=== PATIENT | female | born 1970 | race Caucasian/White ===

== ENCOUNTER 2017-08-11 17:25 | Inpatient (IN) | payer OTHER ==
[2017-08-11] MEDS ORDERED: ASPIRIN 81 MG PO STA (17:27)
[2017-08-11] MEDS ORDERED: HEPARIN SODIUM,PORCINE 5,000 UNIT/ML 1 ML VIAL IV PRN (17:27)
[2017-08-11] MEDS ORDERED: MORPHINE SULFATE 4 MG/ML SYRINGE IV PRN (17:27)
[2017-08-11] MEDS ORDERED: NITROGLYCERIN SL TABS 0.4 MG TAB SUBLINGUAL PRN (17:27)
[2017-08-11] MEDS ORDERED: HEPARIN SOD,PORK IN 0.45% NACL 25,000 UNIT in 0.45% NACL 1 500ML.BAG IV SCH (17:30)
[2017-08-11] MEDS ORDERED: NITROGLYCERIN-D5W PMX 50 MG in DEXTROSE/WATER 1 250ML.BAG IV ONE (17:54)
[2017-08-11] MEDS ORDERED: LIDOCAINE 2% INJ 20 MG/ML (20 ML MDV) ONE ×2 (18:06→19:00)
--- NOTE | 2017-08-11 18:07 | P.CRDCN ---
History of Present Illness Consult date: 08/11/17 History of present illness: This is a 47-year-old female with history of smoking and also hypertension and hypercholesterolemia who was transferred from [facility] emergency room. Apparently patient has been having intermittent chest pain and tightness in the morning. EKG in the emergency room. There showed mild ST-T changes in 1 and aVL. Patient chest pain was partially relieved with nitroglycerin. Patient's troponins showed mild elevation. Patient had CT angiogram at [facility]. This is was apparently negative for pulmonary emboli. Patient subsequent was transferred here. EKG here showed a sinus rhythm with mild ST elevations in anterolateral leads with T-wave inversions. Patient is still having some chest tightness and shortness of breath. No changes are noted in the inferior leads. His felt that may be consistent with acute coronary syndrome and possible HI. She is advised to have a cardiac catheterization for definitive diagnosis. The possibility of pericarditis is also considered. Patient was explained the risks and benefits of the procedure including the possibility of myocardial infarctions, stroke or even Past Medical History Past Medical History: Hyperlipidemia, Hypertension History of Any Multi-Drug Resistant Organisms: None Reported Past Psychological History: No Psychological Hx Reported Smoking Status: Current every day smoker Past Alcohol Use History: Occasional Past Drug Use History: None Reported Medications and Allergies Allergies Allergy/AdvReac Type Severity Reaction Status Date / Time No Known Allergies Allergy Verified 08/11/17 17:40 Physical Exam Vitals: Vital Signs Temp Pulse Resp BP Pulse Ox 08/11/17 17:45 99.0 F 86 20 154/103 98 08/11/17 17:28 82 20 161/103 96 Intake and Output 08/11/17 08/11/17 08/11/17 06:59 14:59 22:59 Other: Weight 72.575 kg Patient Weight 08/12/17 06:59 Weight 72.575 kg GENERAL EXAM: Patient is alert and oriented and patient appears to be in mild-to -moderate distress HEENT: Normocephalic. Normal reaction of pupils, equal size, normal range of extraocular motion. No erythema or exudates in the throat. NECK: No masses, no nuchal rigidity. CHEST: No chest wall deformity. LUNGS: Equal air entry with no crackles or wheeze. HEART: S1 and S2 normal with no audible mumurs or gallops. Regular rhythm, femorals equal on both sides.. ABDOMEN: No hepatosplenomegaly, normal bowel sounds, no guarding or rigidity. SKIN: No rashes CENTRAL NERVOUS SYSTEM: No focal deficits. EXTREMITIES: No cyanosis, clubbing or edema. Results Current Medications Generic Name Dose Route Start Last Admin Trade Name Freq PRN Reason Stop Dose Admin Aspirin 325 mg 08/12/17 09:00 Aspirin PO DAILY [facility] Atorvastatin Calcium 80 mg 08/12/17 09:00 Lipitor PO DAILY [facility] Heparin Sodium (Porcine) 0 unit 08/11/17 17:27 Heparin IV Q6HR PRN Low PTT Protocol Heparin Sodium/Sodium Chloride 500 mls @ 17.41 mls/hr 08/11/17 17:30 17:55 25,000 unit/ Sodium Chloride IV 12 units/kg/hr .Q24H ADITI 17.41 mls/hr Protocol Administration 12 UNITS/KG/HR Nitroglycerin/Dextrose 50 mg/ 250 mls @ 1.5 mls/hr 08/11/17 17:54 08/11/17 17 :55 IV Solution IV 08/12/17 17:53 5 mcg/min .Q24H ONE 1.5 mls/hr Protocol Administration 5 MCG/MIN Metoprolol Tartrate 25 mg 08/11/17 21:00 Lopressor PO BID [facility] Morphine Sulfate 4 mg 08/11/17 17:27 Morphine Sulfate (Inj) IV Q5M PRN Chest Pain Nitroglycerin 0.4 mg 08/11/17 17:27 Nitrostat SUBLINGUAL Q5M PRN Chest Pain Intake and Output 08/11/17 08/11/17 08/11/17 06:59 14:59 22:59 Other: Weight 72.575 kg Patient Weight 08/12/17 06:59 Weight 72.575 kg EKG Interpretations (text) Sinus rhythm with a diffuse ST-T wave normalities with mild ST elevation and T- wave inversion in anterolateral leads. Could be consistent with ischemia. The possibility of pericarditis to be considered Assessment and Plan (1) Acute coronary syndrome Status: Acute Code(s): I24.9 - ACUTE ISCHEMIC HEART DISEASE, UNSPECIFIED SNOMED Code(s): 020119569 (2) Hypertension Status: Acute Code(s): I10 - ESSENTIAL (PRIMARY) HYPERTENSION SNOMED Code(s) : 93316340 (3) Hypercholesterolemia Status: Acute Code(s): E78.00 - PURE HYPERCHOLESTEROLEMIA, UNSPECIFIED SNOMED Code(s): 19492496 Plan: We'll proceed with cardiac catheterization for definitive diagnosis. Meanwhile we'll continue with the nitroglycerin, heparin and also beta melvi. Further recommendations depend upon the cardiac catheterization. Intervention is Dr. CHI Greenberg who is already informed
--- NOTE | 2017-08-11 18:13 | ED ---
General Adult HPI - General Chief complaint: Chest Pain Stated complaint: Chest Pain Time Seen by Provider: 08/11/17 17:28 Source: patient, EMS, RN notes reviewed, old records reviewed Mode of arrival: EMS Limitations: no limitations - History of Present Illness Initial comments: This is a 47-year-old female to the ER for evaluation of chest pain. Patient accepted in transfer from [facility] for evaluation by cardiology secondary non-ST elevated FL, elevated troponin and active chest pain. Patient presents ER today still complaining of active chest pain anterior chest. With increasing troponin. - Related Data Previous Rx's Medication Instructions Recorded Aspirin 81 mg PO DAILY #90 chew 08/13/17 Atorvastatin [Lipitor] 80 mg PO DAILY #30 tab 08/13/17 Furosemide [Lasix] 20 mg PO DAILY #90 tab 08/13/17 Losartan [Cozaar] 50 mg PO DAILY #90 tab 08/13/17 Metoprolol Tartrate [Lopressor] 25 mg PO BID #180 tab 08/13/17 Nitroglycerin Sl Tabs [Nitrostat] 0.4 mg SUBLINGUAL Q5M PRN #25 tab 08/13/17 Allergies Allergy/AdvReac Type Severity Reaction Status Date / Time No Known Allergies Allergy Verified 08/11/17 18:08 Review of Systems ROS Statement: Those systems with pertinent positive or pertinent negative responses have been documented in the HPI. ROS Other: All systems not noted in ROS Statement are negative. Past Medical History Past Medical History: Hyperlipidemia, Hypertension History of Any Multi-Drug Resistant Organisms: None Reported Past Psychological History: No Psychological Hx Reported Smoking Status: Current every day smoker Past Alcohol Use History: Occasional Past Drug Use History: None Reported - Past Family History Father Additional Family Medical History / Comment(s): pt's father due to alcoholism General Exam Limitations: no limitations General appearance: alert, in no apparent distress, anxious Head exam: Present: atraumatic, normocephalic, normal inspection Eye exam: Present: normal appearance, PERRL, EOMI. Absent: scleral icterus, conjunctival injection, periorbital swelling ENT exam: Present: normal exam, mucous membranes moist Neck exam: Present: normal inspection. Absent: tenderness, meningismus, lymphadenopathy Respiratory exam: Present: normal lung sounds bilaterally. Absent: respiratory distress, wheezes, rales, rhonchi, stridor Cardiovascular Exam: Present: regular rate, normal rhythm, normal heart sounds. Absent: systolic murmur, diastolic murmur, rubs, gallop, clicks GI/Abdominal exam: Present: soft, normal bowel sounds. Absent: distended, tenderness, guarding, rebound, rigid Extremities exam: Present: normal inspection, full ROM, normal capillary refill. Absent: tenderness, pedal edema, joint swelling, calf tenderness Back exam: Present: normal inspection Neurological exam: Present: alert, oriented X3, CN II-XII intact Psychiatric exam: Present: normal affect, normal mood Skin exam: Present: warm, dry, intact, normal color. Absent: rash Course Vital Signs 08/11/17 08/11/17 08/11/17 17:28 17:45 18:00 Temperature 99.0 F Pulse Rate 82 86 88 Pulse Rate [ Left Pulse Oximetery] Respiratory 20 20 20 Rate Blood Pressure 161/103 154/103 152/98 Blood Pressure [Right Arm Supine] O2 Sat by Pulse 96 98 98 Oximetry 08/11/17 18:11 Temperature 98.8 F Pulse Rate Pulse Rate [ 83 Left Pulse Oximetery] Respiratory 17 Rate Blood Pressure Blood Pressure 140/94 [Right Arm Supine] O2 Sat by Pulse 96 Oximetry - Reevaluation(s) Reevaluation #1: Cardiology doctor in the ER evaluating patient, will take patient to [facility] Medical Decision Making - Medical Decision Making 47 female the ER for evaluation of non-ST elevated FL, patient be admitted For cardiac intervention - Lab Data Result diagrams: 08/13/17 05:35 08/12/17 02:42 Critical Care Time Critical Care Time: Yes Total Critical Care Time: 31 Disposition Clinical Impression: Acute coronary syndrome, Hypercholesterolemia, Hypertension, NSTEMI (non-ST elevated myocardial infarction) Disposition: ADMITTED IP TO [facility] Condition: Stable
[2017-08-11] MEDS ORDERED: fentaNYL (PF) 50 MCG/ML 2 ML AMP ONE (18:18)
[2017-08-11] MEDS ORDERED: MIDAZOLAM 2 MG/2 ML VIAL ONE (18:18)
[2017-08-11] MEDS ORDERED: LIDOCAINE 2% INJ 20 MG/ML SQ ONE (18:22)
[2017-08-11] MEDS ORDERED: fentaNYL (PF) 50 MCG/ML 2 ML AMP IV ONE (18:24)
[2017-08-11] MEDS ORDERED: MIDAZOLAM 2 MG/2 ML VIAL IV ONE (18:24)
[2017-08-11] MEDS ORDERED: METOPROLOL TARTRATE 5 MG/5 ML VIAL IVP ONE ×2 (18:24→18:25)
[2017-08-11] MEDS ORDERED: IV FLUID CONTINUATION 1,000 ML IV ONE (18:27)
[2017-08-11] MEDS ORDERED: HEPARIN SODIUM 1,000 UN/ML (10ML VL) ONE (18:35)
[2017-08-11] MEDS ORDERED: HEPARIN SODIUM 1,000 UN/ML (10ML VL) IV ONE (18:37)
[2017-08-11] MEDS ORDERED: NITROGLYCERIN 1000MCG/10ML SYRINGE INTRACORON ONE (18:46)
--- NOTE | 2017-08-11 18:49 | P.PCN ---
Date of Procedure: 08/11/17 Preoperative Diagnosis: Chest pain, acute coronary syndrome versus pericarditis Postoperative Diagnosis: Moderate to severe disease in the proximal RCA after a marginal branch Procedure(s) Performed: Left heart catheterization without left ventriculogram Description of Procedure: HISTORY: This is a 47-year-old female with history of smoking, hypertension and hypercholesteremia presented to [facility] with prolonged chest discomfort. Her EKG showed mild ST-T abnormalities. Initially the patient had a CT angiogram which was negative for pulmonary emboli. Patient was sent to [facility]. EKG showed more progressive ST-T changes with mild ST elevation and T-wave inversion in the anterolateral leads. These were consistent with acute ischemia or possible pericarditis. Her chest pains were atypical, but continued complaining of chest tightness. She is advised to have a cardiac catheterization for definite diagnosis. CONSENT:I have discussed the risks, benefits and alternative therapies for the above-mentioned procedure and for both sedation/analgesia as well as necessary blood product administration, if indicated, as they pertain to this patient. The patient has indicated understanding and acceptance of the risks and procedures discussed. [] PROCEDURE: Patient was brought to the lab in a fasting state. Patient was given some IV sedation. The right groin is infiltrated with lidocaine and right femoral artery was entered using Seldinger technique. A 6-English catheter was left in place and selective coronary arteriography was performed. Patient tolerated the procedure well. Patient is found to have moderate to severe disease involving the proximal RCA. She went on to have FFR by Dr. CHI Greenberg Conscious Sedation: Versed 2 mg Fentanyl 50 g Duration 15minutes HEMODYNAMICS: The aortic pressure is about 140/100. SELECTIVE CORONARY ARTERIOGRAPHY: LEFT MAIN: This is normal length and patent THE LEFT ANTERIOR DESCENDING CORONARY ARTERY:. This is a good caliber vessel free of any significant focal occlusive disease THE LEFT CIRCUMFLEX AND IS CORONARY ARTERY:. Moderate caliber vessel free of any significant occlusive disease THE RIGHT CORONARY ARTERY:. This is large caliber vessel with about 60-70% lesion after acute marginal branch. The rest of the vessel is free of occlusive disease LEFT VENTRICULOGRAPHY:. Not performed FINAL IMPRESSION:. Moderate to severe disease involving the proximal LAD. She is going to have FFR. Further recommendation to follow PLAN: If FFR is negative, most probably patient has pericarditis. We'll treat her with anti-inflammatory agents and get an echocardiogram in the morning PROGNOSIS: Fair
[2017-08-11] MEDS ORDERED: ADENOSINE 90 MG in SODIUM CHLORIDE 0.9% 60 ML IVP ONE (18:53)
[2017-08-11] MEDS ORDERED: IOHEXOL 350 MG/ML 125ML BOTTLE INJ ONE (18:54)
[2017-08-11] MEDS ORDERED: HYDROmorphone 2 MG/ML 1 ML SYRINGE ONE (18:59)
[2017-08-11] MEDS ORDERED: HYDROmorphone 2 MG/ML 1 ML SYRINGE IV ONE (19:02)
[2017-08-11] MEDS ORDERED: RX INFO: IV CONTRAST WAS GIVEN 1 EACH MISC MISCELLANE PRN (19:19)
[2017-08-11] MEDS ORDERED: POTASSIUM CHLORIDE ER 20 MEQ TAB.ER PO STA (19:24)
--- NOTE | 2017-08-11 20:26 | PCN ---
PROCEDURE NOTE DATE OF SERVICE: 08/11/2017. PROCEDURE: Fractional flow reserve assessment of moderate lesion in proximal right coronary artery. PERFORMED BY: Dr. Taisha Greenberg. ANESTHESIA: Moderate conscious sedation time was 33 minutes with a combination of Dilaudid and Versed. CLINICAL INFORMATION: Mrs. Catia Dye is a 47-year-old lady who presented to [facility] with chest pain, had a troponin elevation and equivocal anterior EKG changes, was transferred here expeditiously. Patient was evaluated on coronary angiography by Dr. Dias that revealed a 55% proximal RCA lesion. Left system was free of significant disease. Left ventricular end-diastolic pressure was 28 mmHg. In view of a moderate lesion in the proximal RCA, she was advised to have an FFR and I proceeded to perform the procedure in the same setting. PROCEDURE NOTE: The existing 6-Argentine introducer in the right femoral artery was used to perform the procedure. I used a ART 3.5 guide catheter to cannulate the right coronary artery. This was a 6-Argentine catheter. Patient received 5000 units of heparin intravenously. I advanced a Albers wire under fluoroscopic guidance and wire was kept distally. I performed an IFR and also as per protocol administered intravenous adenosine and performed an FFR. The IFR was 0.98 and FFR was 0.94. These values suggest that the patient does not have any significant lesion. This was explained to the patient and Dr. Dias also talked to her regarding the findings. I checked LV pressures but did not perform LV gram. The sheath was taken out and I tried to use a Perclose to secure hemostasis, but the Perclose was unsuccessful, and therefore I applied manual compression and Femstop and patient was sent to the room in a stable condition. The findings were explained to the patient by me and to her by Dr. Dias. The patient will have an echocardiogram tomorrow and the possibility of takotsubo syndrome is being considered. She will be on a beta melvi, JOY inhibitors, and will be watched very closely. MMODL / IJN: [id number] / MTDD
[2017-08-11] MEDS: LOSARTAN 50 MG TAB PO SCH (20:30)
[2017-08-11 21:06] LABS: Creatine Kinase MB 9.2 ng/mL (0.0-2.4); Troponin I 1.81 ng/mL (0.000-0.034)
[2017-08-11] MEDS: FUROSEMIDE 10 MG/ML 2 ML VIAL IV SCH (21:16)
[2017-08-11] MEDS: METOPROLOL TARTRATE 25 MG TAB PO SCH (21:16)
[2017-08-11] MEDS: SODIUM CHLORIDE 0.9% 1,000 ML IV SCH (21:21)
[2017-08-11] MEDS ORDERED: ACETAMINOPHEN TAB 325 MG TAB PO PRN (22:48)
[2017-08-12 03:01] LABS: Basophils # (A) 0.1 k/uL (0-0.2); Basophils % (A) 1 %; Eosinophils # (A) 0.2 k/uL (0-0.7); Eosinophils % (A) 3 %; HGB 13.9 gm/dL (11.4-16.0); Lymphocytes # (A) 1.7 k/uL (1.0-4.8); Lymphocytes % (A) 23 %; MCH 33.7 pg (25.0-35.0); MCHC 33.8 g/dL (31.0-37.0); MCV 99.8 fL (80.0-100.0); Mean Platelet Volume 6.9; Monocytes # (A) 0.4 k/uL (0-1.0); Monocytes % (A) 5 %; Neutrophils # (A) 4.9 k/uL (1.3-7.7); Neutrophils % (A) 65 %; Platelet Count 215 k/uL (150-450); RBC 4.11 m/uL (3.80-5.40); RDW 12.9 % (11.5-15.5); WBC 7.5 k/uL (3.8-10.6)
[2017-08-12 03:12] LABS: Anion Gap 10 mmol/L; Blood Urea Nitrogen 16 mg/dL (7-17); Calcium 8.7 mg/dL (8.4-10.2); Carbon Dioxide 26 mmol/L (22-30); Chloride 102 mmol/L (98-107); Cholesterol 212 mg/dL (<200); Glucose 109 mg/dL (74-99); HDL Cholesterol 61 mg/dL (40-60); LDL Cholesterol,Calculated 73 mg/dL (0-99); Potassium 3.7 mmol/L (3.5-5.1); Sodium 138 mmol/L (137-145); Triglycerides 389 mg/dL (<150)
[2017-08-12 03:38] LABS: Creatine Kinase MB 7.4 ng/mL (0.0-2.4); Troponin I 1.29 ng/mL (0.000-0.034)
[2017-08-12] MEDS: FUROSEMIDE 10 MG/ML 2 ML VIAL IV SCH ×2 (08:37→21:17)
[2017-08-12] MEDS: ATORVASTATIN 80 MG TAB PO SCH (08:37)
[2017-08-12] MEDS: METOPROLOL TARTRATE 25 MG TAB PO SCH ×2 (08:37→21:17)
[2017-08-12] MEDS: LOSARTAN 50 MG TAB PO SCH (08:37)
[2017-08-12] MEDS: ASPIRIN 81 MG PO SCH (08:37)
[2017-08-12] MEDS ORDERED: ASPIRIN 325 MG TAB PO SCH (09:00)
[2017-08-12 12:00] VITALS: BMI 19.5
--- NOTE | 2017-08-12 14:40 | P.PN ---
Subjective Progress Note Date: 08/12/17 This is a 47-year-old female with history of smoking and also hypertension and hypercholesterolemia who was transferred from [facility] emergency room. Apparently patient has been having intermittent chest pain and tightness in the morning. EKG in the emergency room. There showed mild ST-T changes in 1 and aVL. Patient chest pain was partially relieved with nitroglycerin. Patient's troponins showed mild elevation. Patient had CT angiogram at [facility]. This is was apparently negative for pulmonary emboli. Patient subsequent was transferred here. EKG here showed a sinus rhythm with mild ST elevations in anterolateral leads with T-wave inversions. Patient is still having some chest tightness and shortness of breath. No changes are noted in the inferior leads. His felt that may be consistent with acute coronary syndrome and possible ID. She is advised to have a cardiac catheterization for definitive diagnosis. The possibility of pericarditis is also considered. Patient was explained the risks and benefits of the procedure including the possibility of myocardial infarctions, stroke or even . 08/12/2017 Patient did undergo cardiac catheterization yesterday which revealed moderate to severe disease involving the proximal LAD, subsequent to that she underwent FFR by Dr. CHI Greenberg that came back to be 0.94 suggesting and no significant lesion. Patient also had stenosis in the RCA. Echocardiogram with Doppler study was reviewed by Dr. 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 Patient was initiated on medications, she is currently on aspirin 81 mg daily, Lipitor 80 mg daily, Lasix 20 mg IV twice a day, losartan 50 mg daily, metoprolol 25 mg one tablet by mouth twice a day. Patient was seen and examined today, she was quite frustrated that she needed to remain in the hospital. It was explained to her in detail the physiology behind stress cardiomyopathy, and the need to be observed in the hospital for 48 hours to monitor for any arrhythmias. Today she is hemodynamically stable. Objective - Vital Signs Vital signs: Vital Signs Temp 97.8 F 08/12/17 12:00 Pulse 73 08/12/17 12:00 Resp 20 08/12/17 12:00 BP 107/78 08/12/17 12:00 Pulse Ox 96 08/12/17 12:00 Intake & Output 08/11/17 08/12/17 08/12/17 18:59 06:59 18:59 Intake Total 636.671 0572 120 Output Total 575 Balance 115.575 625 120 Weight 72.575 kg 55 kg 55 kg Intake: IV 115.4 Intake, IV Titration 0.175 750 Amount Nitroglycerin-D5w Pmx 50 0.175 mg In Dextrose/Water 1 250ml.bag @ 5 MCG/MIN 1.5 mls/hr IV .Q24H ONE Rx#: [id number] Sodium Chloride 0.9% 1, 750 000 ml @ 75 mls/hr IV . [id number] [facility] Rx#:[id number] Oral 450 120 Output: Urine 575 Other: Voiding Method Bedpan # Voids 2 - Exam PHYSICAL EXAMINATION: HEENT: Head is atraumatic, normocephalic. Pupils equal, round. Neck is supple. There is no elevated jugular venous pressure. HEART EXAMINATION: Heart S1, S2 normal. No murmur or gallop heard. CHEST EXAMINATION: Lungs are clear to auscultation and precussion. No chest wall tenderness is noted on palpation or with deep breathing. ABDOMEN: Soft, nontender. Bowel sounds are heard. No organomegaly noted. Right groin soft, no evidence of any hematoma. EXTREMITIES: 2+ peripheral pulses with no evidence of peripheral edema and no calf tenderness noted. NEUROLOGIC patient is awake, alert and oriented -3. . - Labs CBC & Chem 7: 08/12/17 02:42 08/12/17 02:42 Labs: Abnormal Lab Results - Last 24 Hours (Table) 08/11/17 08/11/17 08/12/17 Range/Units 20:20 20:20 02:42 APTT 109.3 H* (22.0-30.0) sec Glucose (74-99) mg/dL Total Creatine Kinase 194 H 186 H (30-135) U/L CK-MB (CK-2) 9.2 H* 7.4 H* (0.0-2.4) ng/mL Troponin I 1.810 H* 1.290 H* (0.000-0.034) ng/mL Triglycerides (<150) mg/dL Cholesterol (<200) mg/dL HDL Cholesterol (40-60) mg/dL 08/12/17 08/12/17 Range/Units 02:42 07:46 APTT (22.0-30.0) sec Glucose 109 H (74-99) mg/dL Total Creatine Kinase (30-135) U/L CK-MB (CK-2) (0.0-2.4) ng/mL Troponin I 0.845 H* (0.000-0.034) ng/mL Triglycerides 389 H (<150) mg/dL Cholesterol 212 H (<200) mg/dL HDL Cholesterol 61 H (40-60) mg/dL Assessment and Plan Plan: Assessment and plan #1 stress cardiomyopathy, patient underwent a cardiac catheterization which revealed moderate to severe disease in the LAD, FFR was not a significant, suggesting no significant obstructive coronary artery disease. Patient also has a 50% RCA lesion. Echocardiogram with Doppler study revealed apical ballooning syndrome w severe hypokinesia. #2 hypertension #3 hyperlipidemia #4 nicotine dependence Plan We will discontinue the lisinopril as the patient is already on losartan. Continue other medications. Patient has been encouraged to be up ambulating in the hallway, we will continue to monitor for any arrhythmias. Plan for discharge home in 2-3 days. DNP note has been reviewed, I agree with a documented findings and plan of care. Patient was seen and examined.
--- NOTE | 2017-08-12 15:39 | PN ---
PROGRESS NOTE DATE OF SERVICE: 08/12/17 CHIEF COMPLAINT: Chest pain. HISTORY OF PRESENT ILLNESS: This lady's cath demonstrated some coronary artery disease, but no significant large vessel blockages. She is doing well. We will increase her activity and wait for any further guidelines from Cardiology before she is discharged. JOSH / JOAN: [id number] /
--- NOTE | 2017-08-12 15:39 | HP ---
HISTORY AND PHYSICAL CHIEF COMPLAINT: Chest pain and foot. HISTORY OF PRESENT ILLNESS: First admission for this 47-year-old white female. Apparently she was at [facility] and was worked up for pulmonary embolism and had a negative CTA. Enzymes are up. Her troponins up and she was sent to the emergency room here. She was taken for cardiac cath which did not demonstrate any critical lesions. She was sent back to the floor for medical management. REVIEW OF SYSTEMS: She has had no headaches, TIAs, neurologic problems, difficulty with the vision or the hearing, and heart disease, murmurs, rheumatic fever, orthopnea, PND, abdominal pain, GI or complaints, diabetes, etc. Past medical history, family history, personal and social histories reveal that she has a history of hypertension and takes Lotensin. She also has an elevated cholesterol. She has negative family history. She does smoke. PHYSICAL EXAMINATION: Blood pressure 117/77 with a pulse of 81, respirations of 19. She is afebrile. In general, she appeared to be well developed, well nourished, no acute distress. Skin color is normal skin is warm, dry. Lymph nodes not enlarged. Head, ears, eyes, nose, mouth, and throat were normal. Neck veins were not distended. Thyroid was not enlarged. Chest is clear. Cardiac exam is normal. Abdomen is soft, nontender. Extremities are normal. IMPRESSION: 1. Chest pain. 2. Elevated cardiac enzymes. 3. History of hypertension number. 4. History of hyperlipidemia. PLAN: Await for further recommendations from Cardiology. They are considering this as possible takotsubo or pericarditis. MMODL / IJN: [id number] /
[2017-08-12] MEDS: SODIUM CHLORIDE 0.9% 1,000 ML IV SCH (19:03)
[2017-08-13 06:08] LABS: Mean Platelet Volume 6.9; Platelet Count 187 k/uL (150-450)
[2017-08-13] MEDS: ATORVASTATIN 80 MG TAB PO SCH (08:03)
[2017-08-13] MEDS: METOPROLOL TARTRATE 25 MG TAB PO SCH (08:03)
[2017-08-13] MEDS: ASPIRIN 81 MG PO SCH (08:03)
[2017-08-13] MEDS: LOSARTAN 50 MG TAB PO SCH (08:03)
[2017-08-13] MEDS: FUROSEMIDE 10 MG/ML 2 ML VIAL IV SCH (08:03)
[2017-08-13] MEDS ORDERED: LISINOPRIL 20 MG TAB PO SCH (09:00)
[2017-08-13 10:20] VITALS: RESP 20
[2017-08-13 11:51] VITALS: BP 116/70; PULSE 71; TEMP 98
[2017-08-13] MEDS ORDERED: MORPHINE ORAL SOLN 10 MG/5 ML CUP PO PRN (13:54)
--- NOTE | 2017-08-13 13:58 | P.PN ---
Subjective Progress Note Date: 08/13/17 this is a 47-year-old female with history of smoking and hypertension as well as hyper-cholesterolemia who was transferred from [facility] emergency room she initially presented with complaints of intermittent chest pain and tightness. EKG showed mild ST-T wave changes in leads 1 and aVL. Chest pain was partially relieved with nitroglycerin. Patient subsequently underwent cardiac catheterization which revealed moderate to severe disease involving the proximal RCA that came in to be nonischemic. patient did undergo echocardiogram after review it was felt that the patient has a stress cardiomyopathy. she has been started on aspirin 81 mg by mouth daily, atorvastatin 80 mg by mouth daily, losartan 50 mg by mouth daily and metoprolol titrate 25 mg by mouth twice a day. Upon examination today, patient is resting comfortably in bed. She's had no further complaints of chest discomfort. Objective - Vital Signs Vital signs: Vital Signs Temp 98 F 08/13/17 11:50 Pulse 71 08/13/17 11:50 Resp 20 08/13/17 11:50 BP 116/70 08/13/17 11:50 Pulse Ox 98 08/13/17 11:50 Intake & Output 08/12/17 08/13/17 08/13/17 18:59 06:59 18:59 Intake Total 1145 1400 180 Balance 1145 1400 180 Weight 55 kg 74.4 kg Intake: Intake, IV Titration 600 825 Amount Sodium Chloride 0.9% 1, 600 825 000 ml @ 75 mls/hr IV . [id number] [facility] Rx#:[id number] Oral 545 575 180 Other: Voiding Method Bedpan # Voids 2 - Exam PHYSICAL EXAMINATION: HEENT: [Head is atraumatic, normocephalic. Pupils equal, round. Neck is supple. There is no elevated jugular venous pressure.] HEART EXAMINATION: [Heart sounds regular, S1 and S2 normal. No murmur or gallop heard.] CHEST EXAMINATION:[ Lungs are clear to auscultation and precussion. No chest wall tenderness is noted on palpation or with deep breathing.] ABDOMEN: [ Soft, nontender. Bowel sounds are heard. No organomegaly noted]. EXTREMITIES:[ 2+ peripheral pulses with no evidence of peripheral edema and no calf tenderness noted. right groin puncture site with ecchymosis, soft without evidence of hematoma.]. NEUROLOGIC [patient is awake, alert and oriented x3.] . - Labs CBC & Chem 7: 08/13/17 05:35 08/12/17 02:42 Assessment and Plan Assessment: #1 stress cardiomyopathy is evidence of apical ballooning with severe hypokinesis on echocardiogram #2 hypertension #3 hyperlipidemia #4 nicotine dependence Plan: from cardiology's perspective, patient is stable for discharge home. She was advised no driving and minimal activities until follow-up. She will follow-up in the office with Dr. Dias in about a week. ELECTRONICS REPAIR TECHNICIAN note has been reviewed, I agree with a documented findings and plan of care. Patient was seen and examined.
--- NOTE | 2017-08-13 16:28 | DS ---
DISCHARGE SUMMARY DATE OF ADMISSION: 08/11/2017. DATE OF DISCHARGE: 08/13/2017 CHIEF COMPLAINT: Chest pain. HISTORY OF PRESENT ILLNESS AND PHYSICAL EXAMINATION: The details of this lady's history and physical can be found in the initial workup. LABORATORY STUDIES: While she was in the hospital she had laboratory studies, details of which can be found in the laboratory section of her chart. COURSE IN THE HOSPITAL: After admission she was placed on bedrest and started on intravenous fluids. She was taken to the nursery laborer, where she was found not to have any critical large coronary vessel lesions. There was a question of takotsubo syndrome. She remained stable and it was felt that she could go home on August 13. She will follow up in the office. Considering that her troponin was elevated, she may be a good candidate to also regard as a small vessel coronary artery event. FINAL DIAGNOSIS: 1. Chest pain. 2. Takotsubo syndrome. OPERATIONS: None. CONSULTATION: Cardiology. She is improved. MMODL / IJN: [id number] /
== END 2017-08-13 13:40 | disposition home or self-care (01) | DRG 287 ==
LOC: EC 17:25 → 6SEL 17:27
PROVIDERS: ADMIT Family Medicine; ATTEND Family Medicine
PROC: 4A033BC Measurement of Arterial Pressure, Coronary, Percutaneous Approach (ICD-10-PCS; 2017-08-11)
PROC: 4A023N7 Measurement of Cardiac Sampling and Pressure, Left Heart, Percutaneous Approach (ICD-10-PCS; principal; 2017-08-11 18:08)
PROC: B2111ZZ Fluoroscopy of Multiple Coronary Arteries using Low Osmolar Contrast (ICD-10-PCS; 2017-08-11 18:08)
DX: I51.81 Takotsubo syndrome (principal); I11.9 Hypertensive heart disease without heart failure; E78.00 Pure hypercholesterolemia, unspecified; F17.200 Nicotine dependence, unspecified, uncomplicated; I25.10 Atherosclerotic heart disease of native coronary artery without angina pectoris; Z79.82 Long term (current) use of aspirin; Z79.899 Other long term (current) drug therapy
CPT/HCPCS: 80048; 80061; 82550; 82553; 84484; 85025; 85049; 85347; 85730; 93005; 93458; 93571; 96365; 96368; 99285

== ENCOUNTER 2023-09-24 14:54 | Inpatient (IN) | payer BC, OTHER ==
--- NOTE | 2023-09-24 15:04 | ED ---
Chest Pain HPI - General Chief Complaint: Chest Pain Stated Complaint: Chest/Abd Pain-Abnormal Labs-sent by Drs Time Seen by Provider: 09/24/23 15:03 Source: patient, RN notes reviewed, old records reviewed Mode of arrival: ambulatory Limitations: no limitations - History of Present Illness Initial Comments: This is a 53-year-old female to the ER today. She is present today for evaluation of chest pain abdominal pain back pain pain radiating around the right side with nausea no vomiting patient states she feels significantly unwell significantly sick. No fever symptoms began yesterday worsening into today and significantly worsening tonight Complaint: chest pain, other (Abdominal pain epigastric pain right-sided fla nk pain and back pain) -: hour(s) Pain Location: substernal, right chest, epigastric Pain Radiation: back Severity: severe Severity scale (1-10): 8 Quality: aching, heaviness Consistency: constant Improves With: nothing Worsens With: nothing Anginal Symptoms: nausea, vomiting, dyspnea Other Symptoms: palpitations Treatments Prior to Arrival: none - Related Data Home Medications Medication Instructions Recorded Confirmed Buprenorphine HCl/Naloxone HCl 0.5 film SL BID@0900,1400 09/24/23 09/24/23 [Suboxone 8 mg-2 mg Sl Film] Colchicine 0.6 mg PO DAILY PRN 09/24/23 09/24/23 Ibuprofen [Motrin] 800 mg PO BID PRN 09/24/23 09/24/23 Ketoconazole 2% Shampoo [Nizoral] 1 applic TOPICAL Q3D PRN 09/24/23 09/24/23 Levothyroxine Sodium [Synthroid] 75 mcg PO DAILY 09/24/23 09/24/23 Losartan Potassium 100 mg PO DAILY 09/24/23 09/24/23 Nitroglycerin Sl Tabs [Nitrostat] 0.4 mg SL Q5M PRN 09/24/23 09/24/23 Ondansetron Odt [Zofran ODT] 4 mg PO Q8HR PRN 09/24/23 09/24/23 Rosuvastatin [Crestor] 20 mg PO DAILY 09/24/23 09/24/23 allopurinoL [Zyloprim] 300 mg PO DAILY 09/24/23 09/24/23 amLODIPine [Norvasc] 10 mg PO DAILY 09/24/23 09/24/23 Previous Rx's Medication Instructions Recorded Aspirin 81 mg PO DAILY #90 chew 08/13/17 Metoprolol Tartrate [Lopressor] 25 mg PO BID #180 tab 08/13/17 Docusate [Colace] 100 mg PO BID #30 capsule 09/28/23 Folic Acid 1 mg PO DAILY #30 tab 09/28/23 Multivitamins, Thera [Multivitamin 1 each PO DAILY #30 tab 09/28/23 (formulary)] Thiamine [Vitamin B-1] 100 mg PO DAILY #30 tab 09/28/23 Allergies Allergy/AdvReac Type Severity Reaction Status Date / Time No Known Allergies Allergy Verified 09/24/23 17:28 Review of Systems ROS Statement: Those systems with pertinent positive or pertinent negative responses have been documented in the HPI. ROS Other: All systems not noted in ROS Statement are negative. EKG Findings - EKG Comments: EKG Findings:: EKG sinus bradycardia 55 CO 211 QRS 117 QTc 404 Past Medical History Past Medical History: Hyperlipidemia, Hypertension, Myocardial Infarction ([place]) History of Any Multi-Drug Resistant Organisms: None Reported Past Surgical History: Heart Catheterization, Hysterectomy Additional Past Surgical History / Comment(s): ; heart cath no stent 08/11/2017 Past Anesthesia/Blood Transfusion Reactions: No Reported Reaction Past Psychological History: No Psychological Hx Reported Past Alcohol Use History: Occasional Past Drug Use History: None Reported - Past Family History Father Additional Family Medical History / Comment(s): pt's father due to alcoholism General Exam Limitations: no limitations General appearance: alert, in no apparent distress, anxious Head exam: Present: atraumatic, normocephalic, normal inspection Eye exam: Present: normal appearance, PERRL, EOMI. Absent: scleral icterus, conjunctival injection, periorbital swelling ENT exam: Present: normal exam, mucous membranes moist Neck exam: Present: normal inspection. Absent: tenderness, meningismus, lymphadenopathy Respiratory exam: Present: normal lung sounds bilaterally. Absent: respiratory distress, wheezes, rales, rhonchi, stridor Cardiovascular Exam: Present: regular rate, normal rhythm, normal heart sounds. Absent: systolic murmur, diastolic murmur, rubs, gallop, clicks GI/Abdominal exam: Present: soft, normal bowel sounds. Absent: distended, tenderness, guarding, rebound, rigid Extremities exam: Present: normal inspection, full ROM, normal capillary refill. Absent: tenderness, pedal edema, joint swelling, calf tenderness Back exam: Present: normal inspection Neurological exam: Present: alert, oriented X3, CN II-XII intact Psychiatric exam: Present: normal affect, normal mood Skin exam: Present: warm, dry, intact, normal color. Absent: rash Course Vital Signs 09/24/23 09/24/23 09/24/23 14:58 18:35 20:02 Temperature 97.3 F L Pulse Rate 58 L 62 63 Respiratory 18 18 18 Rate Blood Pressure 133/84 152/89 138/85 O2 Sat by Pulse 100 99 98 Oximetry 09/24/23 21:12 Temperature Pulse Rate 70 Respiratory 18 Rate Blood Pressure 135/86 O2 Sat by Pulse 99 Oximetry - Reevaluation(s) Reevaluation #1: 09/24/23 18:58 Medical record is reviewed Reevaluation #2: 09/24/23 18:58 Patient's symptoms are improved Reevaluation #3: 09/24/23 18:58 Patient informed of results and questions were answered Studies Chest x-ray, CT abdomen pelvis and ultrasound gallbladder negative for acute disease Reevaluation #4: Was pt. sent in by a medical professional or institution (, PA, MILITARY SCIENCE INSTRUCTOR, urgent care, hospital, or assisted...) When possible be specific @ -no Did you speak to anyone other than the patient for history (EMS, parent, family, police, friend...)? What history was obtained from this source @ -no Did you review nursing and triage notes (agree or disagree)? Why? @ -agree Are old charts reviewed (outside hosp., previous admission, EMS record, old EKG, old radiological studies, urgent care reports/EKG's, assisted records)? Report findings @ -yes Differential Diagnosis (chest pain, altered mental status, abdominal pain women, abdominal pain men, vaginal bleeding, weakness, fever, dyspnea, syncope, headache, dizziness, GI bleed, back pain, seizure, CVA, palpatations, mental health, musculoskeletal)? @ -prior EKG interpreted by me (3pts min.). @ -yes X-rays interpreted by me (1pt min.). @ -yes negative for acute disease CT interpreted by me (1pt min.). @ -Yes negative for acute disease U/S interpreted by me (1pt. min.). @ -Yes negative for acute disease What testing was considered but not performed or refused? (CT, X-rays, U/S, labs)? Why? @ -none What meds were considered but not given or refused? Why? @ -none Did you discuss the management of the patient with other professionals (professionals i.e. Dr., PA, MILITARY SCIENCE INSTRUCTOR, lab, RT, psych nurse, adoption social worker, criminal defense lawyer, teacher, police liaison officer, pillowcase maker)? Give summary @ -no Was smoking cessation discussed for >3mins.? @ -no Was critical care preformed (if so, how long)? @ -no Were there social determinants of health that impacted care today? How? (Homelessness, low income, unemployed, alcoholism, drug addiction, transportation, low edu. Level, literacy, decrease access to med. care, intermediate, rehab)? @ -none Was there de-escalation of care discussed even if they declined (Discuss DNR or withdrawal of care, Hospice)? DNR status @ -no What co-morbidities impacted this encounter? (DM, HTN, Smoking, COPD, CAD, Cancer, CVA, ARF, Chemo, Hep., AIDS, mental health diagnosis, sleep apnea, morbid obesity)? @ -none Was patient admitted / discharged? Hospital course, mention meds given and route, prescriptions, significant lab abnormalities, going to OR and other pertinent info. @ - 53 female to ER for evaluation of abdominal pain with severe nausea vomiting, patient has significant acute pancreatitis likely alcoholic pancreatitis and will admit for symptom control pain control n.p.o. status and pain control Admitted Undiagnosed new problem with uncertain prognosis? @ -no Drug Therapy requiring intensive monitoring for toxicity (Heparin, Nitro, Insulin, Cardizem)? @ -no Were any procedures done? @ -no Diagnosis/symptom? @ -Acute pancreatitis Acute, or Chronic, or Acute on Chronic? @ -Acute Uncomplicated (without systemic symptoms) or Complicated (systemic symptoms)? @ -Complicated Side effects of treatment? @ -no Exacerbation, Progression, or Severe Exacerbation? @ -exacerbation Poses a threat to life or bodily function? How? (Chest pain, [place], [place], pneumonia, PE, COPD, DKA, ARF, appy, cholecystitis, CVA, Diverticulitis, Homicidal, Suicidal, threat to staff... and all critical care pts) @ -no Reevaluation #5: Differential Chest Pain: Stable Angina, Unstable Angina, STEMI, NSTEMI Aortic Dissection, Pneumothorax, Musculoskeletal, Esophageal Spasm GERD, Cholecystitis, Pancreatitis, Zoster, this is not meant to be an all-inclusive list. Differential Abdominal Pain Women: Appendicitis, Cholecystitis, diverticulosis, ischemic bowel, pancreatitis, hepatitis, UTI, gastroenteritis, AAA, incarcerated hernia, bowel obstruction, constipation, inflammatory bowel, hepatitis, peptic ulcer disease, splenic infarction, perforated viscus, vulvitis, ovarian torsion, PID, kidney stone, placenta abruption, this is not meant to be an all-inclusive list - Consultations Consultation #1: Spoke with admitting physicians who agreed to admit this patient Chest Pain MDM - MDM 53 female to ER for evaluation of abdominal pain with severe nausea vomiting, patient has significant acute pancreatitis likely alcoholic pancreatitis and will admit for symptom control pain control n.p.o. status and pain control Disposition Clinical Impression: Acute hypokalemia, Acute pancreatitis, Abdominal pain, Weakness, Dehydration, Pancreatitis, Cholecystitis, Hypercholesterolemia Disposition: ADMITTED IP TO THIS HOSP Condition: Good Is patient prescribed a controlled substance at d/c from ED?: No Time of Disposition: 21:00
[2023-09-24 15:41] LABS: INR 0.9 (<1.2); Partial Thromboplastin Time 25.4 sec (22.0-30.0); Prothrombin Time 10.4 sec (10.0-12.5)
[2023-09-24 15:48] LABS: Basophils # (A) 0.1 k/uL (0-0.2); Basophils % (A) 1 %; Eosinophils # (A) 0.5 k/uL (0-0.7); Eosinophils % (A) 4 %; HCT 46.1 % (34.0-46.0); HGB 15.4 gm/dL (11.4-16.0); Lymphocytes # (A) 0.9 k/uL (1.0-4.8); Lymphocytes % (A) 7 %; MCH 36.8 pg (25.0-35.0); MCHC 33.4 g/dL (31.0-37.0); MCV 110.3 fL (80.0-100.0); Macrocytosis Marked; Mean Platelet Volume 7.9; Monocytes # (A) 0.5 k/uL (0-1.0); Monocytes % (A) 4 %; Neutrophils % (A) 82 %; Platelet Count 249 k/uL (150-450); RBC 4.18 m/uL (3.80-5.40); RDW 13.1 % (11.5-15.5); WBC 12.3 k/uL (3.8-10.6)
[2023-09-24 15:49] LABS: ALT 61 U/L (4-34); AST 180 U/L (14-36); African American GFR (CKD) 28 (>60 ml/min/1.73 sqM); Albumin 4.3 g/dL (3.5-5.0); Alkaline Phosphatase 106 U/L (38-126); Anion Gap 11 mmol/L; Blood Urea Nitrogen 29 mg/dL (7-17); Calcium 9.7 mg/dL (8.4-10.2); Carbon Dioxide 18 mmol/L (22-30); Chloride 112 mmol/L (98-107); Glucose 128 mg/dL (74-99); Magnesium 2.1 mg/dL (1.6-2.3); Non-African American GFR(CKD) 24 (>60 ml/min/1.73 sqM); Sodium 141 mmol/L (137-145); Total Bilirubin 0.9 mg/dL (0.2-1.3); Total Protein 7.3 g/dL (6.3-8.2)
--- NOTE | 2023-09-24 15:49 | XR ---
EXAMINATION TYPE: XR chest 2V DATE OF EXAM: 09/24/2023 COMPARISON: NONE TECHNIQUE: PA and lateral views submitted. HISTORY: Left FINDINGS: The lungs are clear and there is no pneumothorax, pleural effusion, or focal pneumonia. Heart size normal and no overt failure. Chronic deformity of the right clavicle.. IMPRESSION: 1. No acute process.
[2023-09-24 15:58] LABS: NT-Pro-B-Type Natriuretic Pept 377 pg/mL
[2023-09-24 16:11] LABS: Potassium 2.4 mmol/L (3.5-5.1)
[2023-09-24 16:13] LABS: Lipase 5586 U/L (23-300)
[2023-09-24] MEDS: SODIUM CHLORIDE 0.9% 500 ML 500 ML IV STA (17:40)
[2023-09-24] MEDS: SODIUM CHLORIDE 0.9% 1,000 ML IV STA ×2 (17:40→22:31)
[2023-09-24] MEDS: ONDANSETRON 4 MG/2 ML VIAL IVP STA (17:41)
[2023-09-24] MEDS: HYDROmorphone 1 MG/ML 1 ML SYRINGE IVP STA (17:42)
[2023-09-24 18:01] LABS: Appearance,Urine Clear (Clear); Bilirubin,Urine Negative (Negative); Blood,Urine Moderate (Negative); Color,Urine Light Yellow; Glucose,Urine (UA) Negative (Negative); Ketones,Urine Negative (Negative); Leukocyte Esterase,Urine Negative (Negative); Nitrite,Urine Negative (Negative); PH, Urine 6.5 (5.0-8.0); Protein,Urine 2+ (Negative); RBC,Urine 1 /hpf (0-5); Specific Gravity,Urine 1.013 (1.001-1.035); Squamous Epithelial Cell,Urine <1 /hpf (0-4); Urobilinogen,Urine <2.0 mg/dL (<2.0); WBC,Urine 4 /hpf (0-5)
--- NOTE | 2023-09-24 19:09 | US ---
EXAMINATION TYPE: US gallbladder DATE OF EXAM: 09/24/2023 COMPARISON: NONE CLINICAL INDICATION: Female, 53 years old with history of pain; chest and back pain, acute pancreatit is TECHNIQUE: Multiple sonographic images of the right upper quadrant are obtained. FINDINGS: EXAM MEASUREMENTS: Liver Length: 15.4 cm Gallbladder Wall: 0.3 cm CBD: 1.4 cm Right Kidney: 9.9 x 4.3 x 4.9 cm Pancreas: not seen due to bowel gas Liver: wnl Gallbladder: appears hydropic, 11.2 x 5.2cm, possible dependant sludge noted with borderline wall Evidence for sonographic Angeles's sign: no CBD: dilated with no obvious stone seen Right Kidney: wnl IMPRESSION: 1. Hydropic appearing gallbladder, with possibly some dependent sludge but no shadowing calculi. 2. Borderline mildly thickened gallbladder wall. No sonographic Angeles's sign was elicited. 3. Dilated CBD, with no obstructing stone visualized by this exam. Correlate clinically, and MRCP co uld be considered for further evaluation if clinically warranted. 4. Nonvisualization of the pancreas due to bowel gas.
[2023-09-24] MEDS: POTASSIUM BICARBONATE/CIT AC 20 MEQ TABLET.EFF PO ONE ×2 (19:58→21:14)
--- NOTE | 2023-09-24 20:39 | CT ---
EXAMINATION TYPE: CT abdomen pelvis wo con CT DLP: 507.7 mGycm, Automated exposure control for dose reduction was used. DATE OF EXAM: 09/24/2023 7:36 PM COMPARISON: Same day ultrasound CLINICAL INDICATION:Female, 53 years old with history of pain; Abd/back pain. Sent by PCP due to abno rmal labs. TECHNIQUE: Axial CT of the abdomen and pelvis. Sagittal and coronal reformats were created on a [employer] workstation. Contrast used: mL of , (none if empty) Oral contrast used: without Oral Contrast (none if empty) FINDINGS: LOWER CHEST: Unremarkable ABDOMEN LIVER: Unremarkable GALLBLADDER AND BILE DUCTS: Gallbladder appears dilated, at least 8.4 cm in length and 4.5 cm transve rse. No definite calcified stones or pericholecystic inflammation. Mild intrahepatic ductal dilatatio n. CBD is dilated up to 11.7 mm and seems to taper in the region of the pancreatic head. No definite calcified choledocholith. PANCREAS: Abnormal appearance of the head and uncinate process, appear edematous and with evidence fo r some fluid seen in the pancreaticoduodenal groove. There is moderate to marked haziness of the mary anne pancreatic fat in the head and body regions. No focal fluid collection is identified. SPLEEN: Unremarkable. ADRENAL GLANDS: Unremarkable. KIDNEYS AND URETERS: No evidence of renal calculi or contour deformity. No hydronephrosis. Bilateral perinephric stranding. PELVIS BLADDER: Mostly contracted and unremarkable. REPRODUCTIVE: Uterus not seen, likely surgically absent. What seems to be the left ovary is identifi ed. ABDOMEN & PELVIS STOMACH AND BOWEL: Stomach and small bowel are nondistended, no evidence of obstruction. The append ix appears within normal limits. Moderate stool throughout the colon without focal acute abnormality . PERITONEUM/RETROPERITONEUM: No evidence of pneumoperitoneum or free fluid. VASCULATURE: Minimal atherosclerotic calcifications are present in the abdominal aorta and its branch es. No evidence of aortic aneurysm. LYMPH NODES: No gross evidence for lymphadenopathy. SOFT TISSUE/ABDOMINAL WALL: Unremarkable MUSCULOSKELETAL: No acute osseous abnormalities. Mild disc degeneration changes are present throughou t the thoracolumbar spine. IMPRESSION: 1. Abnormal appearance of the right upper quadrant, likely due to moderate to severe pancreatitis in volving the head and uncinate process and pancreaticoduodenal groove. 2. No focal fluid collection, free fluid, or free air. 3. Dilated CBD, which seems to taper in the region of the pancreatic head, could be at least in part due to #1.
[2023-09-24] MEDS ORDERED: NALOXONE 0.4 MG/ML 1 ML VIAL IV PRN (20:54)
[2023-09-24] MEDS ORDERED: LORazepam 1 MG TAB PO PRN ×4 (20:57)
[2023-09-24] MEDS ORDERED: LORazepam 2 MG/ML INJ IV PRN ×3 (20:57)
[2023-09-24] MEDS ORDERED: LORazepam 0.5 MG TAB PO PRN (20:57)
[2023-09-24] MEDS: HYDROmorphone 1 MG/ML 1 ML SYRINGE IVP PRN (21:15)
[2023-09-24] MEDS: SODIUM CHLORIDE 0.9% 1,000 ML IV SCH ×2 (22:31→22:42)
[2023-09-24] MEDS ORDERED: IBUPROFEN 800 MG TAB PO PRN (22:40)
[2023-09-25] MEDS ORDERED: ONDANSETRON ODT 4 MG TAB PO PRN
[2023-09-25] MEDS: ONDANSETRON 4 MG/2 ML VIAL IVP PRN (02:13)
[2023-09-25] MEDS: FENOFIBRATE 160 MG TAB PO SCH (08:28)
[2023-09-25] MEDS: LOSARTAN 50 MG TAB PO SCH (08:28)
[2023-09-25] MEDS: ASPIRIN 81 MG PO SCH (08:28)
[2023-09-25] MEDS: METOPROLOL TARTRATE 25 MG TAB PO SCH (08:29)
[2023-09-25] MEDS: amLODIPine 10 MG TAB PO SCH (08:29)
[2023-09-25] MEDS: allopurinoL 300 MG TAB PO SCH (08:29)
[2023-09-25] MEDS: MULTIVITAMINS, THERA 1 EACH TAB PO SCH (08:29)
[2023-09-25] MEDS: ATORVASTATIN 40 MG TAB PO SCH (08:29)
[2023-09-25] MEDS: LEVOTHYROXINE 75 MCG TAB PO SCH (08:29)
[2023-09-25] MEDS: THIAMINE 100 MG TAB PO SCH (08:29)
[2023-09-25] MEDS: FOLIC ACID 1 MG TAB PO SCH (08:29)
[2023-09-25] MEDS ORDERED: KETOCONAZOLE 2% SHAMPOO 1 APPLIC/ML TOPICAL PRN (09:00)
[2023-09-25 09:49] LABS: Magnesium 1.7 mg/dL (1.5-2.4); Phosphorus 2.5 mg/dL (2.4-5.1)
[2023-09-25 10:01] LABS: Lipase 1445 U/L (14-63)
[2023-09-25 10:03] LABS: ALT 46 U/L (8-44); AST 150 U/L (13-35); Albumin 3.6 g/dL (3.8-4.9); Albumin/Globulin Ratio 1.71 Ratio (1.60-3.17); Alkaline Phosphatase 82 U/L (41-126); BUN/Creat Ratio 13.24 Ratio (12.00-20.00); Blood Urea Nitrogen 22.5 mg/dL (9.0-27.0); Calcium 8.8 mg/dL (8.7-10.3); Carbon Dioxide 15.2 mmol/L (21.6-31.8); Chloride 112 mmol/L (96-109); Globulin 2.1 g/dL (1.6-3.3); Glucose 83 mg/dL (70-110); Potassium 2.6 mmol/L (3.5-5.5); Sodium 142 mmol/L (135-145); Total Bilirubin 0.5 mg/dL (0.3-1.2); Total Protein 5.7 g/dL (6.2-8.2)
[2023-09-25] MEDS: NON FORMULARY DRUG (Buprenorphine Hcl/Naloxone Hcl [Suboxone 8 Mg-2 Mg Sl Film] 1 EACH Fil SUBLINGUAL SCH (10:03)
[2023-09-25 10:05] LABS: Basophils # (A) 0.02 X 10*3/uL (0.00-0.10); Basophils % (A) 0.2 %; Eosinophils # (A) 0 X 10*3/uL (0.04-0.35); Eosinophils % (A) 0 %; HCT 42.6 % (37.2-46.3); HGB 14.2 g/dL (12.0-15.0); Lymphocytes # (A) 0.31 X 10*3/uL (0.90-5.00); MCH 37.2 pg (27.0-32.0); MCHC 33.3 g/dL (32.0-37.0); MCV 111.5 FL (80.0-97.0); Macrocytosis (M) 2+; Mean Platelet Volume 9.6 FL (9.5-12.2); Monocytes # (A) 0.25 X 10*3/uL (0.20-1.00); Monocytes % (A) 2.5 %; NRBC Per 100 WBC 0 X 10*3/uL (0.00-0.01); Neutrophils # (A) 9.54 X 10*3/uL (1.80-7.70); Neutrophils % (A) 93.8 %; Platelet Count 197 X 10*3/uL (140-440); RBC 3.82 X 10*6/uL (4.10-5.20); RDW 12.5 % (11.5-14.5); WBC 10.17 X 10*3/uL (4.50-10.00)
[2023-09-25] MEDS ORDERED: Magnesium Replacement Protocol 1 EACH MISC MISCELLANE PRN (13:14)
[2023-09-25] MEDS ORDERED: Potassium Replacement Protocol 1 EACH MISC MISCELLANE PRN (13:14)
[2023-09-25] MEDS: MEROPENEM 2 GM in SODIUM CHLORIDE 0.9% 100 ML IVPB SCH (14:01)
--- NOTE | 2023-09-25 18:01 | P.CRDCN ---
History of Present Illness Consult date: 09/25/23 History of present illness: HISTORY OF PRESENTING ILLNESS 53-year-old presented to the hospital because of abdominal pain nausea, poor appetite. She has a past medical history of hypertension, dyslipidemia. In 2018 patient had mild elevation of troponin and was treated for NSTEMI. She got heart catheterization which showed 55% proximal RCA disease which was negative by FFR. This time on admission she was noticed to have lipase elevation 5000 with transaminitis. Patient reported that she binge drinks alcohol. Hb 14, MCV 110, potassium 2.6, creatinine 2.24 on admission, repeat 1.7, Her ECG showed sinus rhythm with flattened T waves which are consistent with hypokalemia. CT abdomen showed pancreatitis and bile duct dilatation REVIEW OF SYSTEMS 14 point review of system is negative except what is mentioned above in HPI. PHYSICAL EXAMINATION Vital signs reviewed. Head: Normocephalic. Eyes: Sclerae nonicteric. Neck: Brisk carotid upstroke, no jugular venous distention. Lungs: Clear to auscultation. Heart: Regular rate and rhythm, S1-S2, no S3, no murmur or rub. Abdomen: Soft nontender, positive bowel sounds. Extremities: No edema, intact distal pulses. Neuro: Alert, oritented, no focal deficits. Detailed neuro exam was not performed. ASSESSMENT Atypical chest pain and epigastric pain due to pancreatitis Binge alcohol drinking Moderate CAD proximal RCA 55% in 2018 Tobacco use Hypertension Dyslipidemia Hypokalemia due to nausea vomiting DIANA due to dehydration and likely prerenal PLAN Patient's chest pain is most likely related to epigastric pain from pancreatitis. It is reproducible on palpation. Patient's troponins are negative and is ruled out of acute coronary syndrome with negative ECG and troponins. Obtain echocardiogram to rule out alcoholic cardiomyopathy rePlace electrolytes, keep potassium near 4, magnesium near 2. Continue medications aspirin, amlodipine, losartan, metoprolol. Do not resume fenofibrate at discharge as it it is not safe to be used in pancreatitis. Consider statins if liver functions are normal on discharge Jeremiah August MD, FACC, RPVI Thank you for allowing [facility] to participate in this patient's care. Feel free to reach out in case of any followup questions. Past Medical History Past Medical History: Hyperlipidemia, Hypertension, Myocardial Infarction ([place]) Last Myocardial Infarction Date:: unknown History of Any Multi-Drug Resistant Organisms: None Reported Past Surgical History: Heart Catheterization, Hysterectomy Additional Past Surgical History / Comment(s): ; heart cath no stent 08/11/2017 Past Anesthesia/Blood Transfusion Reactions: No Reported Reaction Past Psychological History: No Psychological Hx Reported Smoking Status: Current every day smoker Past Alcohol Use History: Occasional Past Drug Use History: None Reported - Past Family History Father Additional Family Medical History / Comment(s): pt's father due to alcoholism Medications and Allergies Home Medications Medication Instructions Recorded Confirmed Type Aspirin 81 mg PO DAILY #90 chew 08/13/17 09/24/23 Rx Metoprolol Tartrate [Lopressor] 25 mg PO BID #180 tab 08/13/17 09/24/23 Rx Buprenorphine HCl/Naloxone HCl 0.5 film SL BID@0900,1400 09/24/23 09/24/23 Histo ry [Suboxone 8 mg-2 mg Sl Film] Colchicine 0.6 mg PO DAILY PRN 09/24/23 09/24/23 History Fenofibrate Nanocrystallized 145 mg PO DAILY 09/24/23 09/24/23 History [Fenofibrate] Ibuprofen [Motrin] 800 mg PO BID PRN 09/24/23 09/24/23 History Ketoconazole 2% Shampoo [Nizoral] 1 applic TOPICAL Q3D PRN 09/24/23 09/24/23 History Levothyroxine Sodium [Synthroid] 75 mcg PO DAILY 09/24/23 09/24/23 History Losartan Potassium 100 mg PO DAILY 09/24/23 09/24/23 History Nitroglycerin Sl Tabs [Nitrostat] 0.4 mg SL Q5M PRN 09/24/23 09/24/23 History Ondansetron Odt [Zofran Odt] 4 mg PO Q8HR PRN 09/24/23 09/24/23 History Rosuvastatin [Crestor] 20 mg PO DAILY 09/24/23 09/24/23 History allopurinoL [Zyloprim] 300 mg PO DAILY 09/24/23 09/24/23 History amLODIPine [Norvasc] 10 mg PO DAILY 09/24/23 09/24/23 History Allergies Allergy/AdvReac Type Severity Reaction Status Date / Time No Known Allergies Allergy Verified 09/24/23 17:28 Physical Exam Vitals: Vital Signs Temp Pulse Pulse Resp BP BP Pulse Ox 09/25/23 14:05 98.4 F 56 L 15 103/65 98 09/25/23 14:00 56 L 15 09/25/23 07:35 98.4 F 73 16 113/67 97 09/25/23 02:09 98.4 F 66 17 117/69 97 09/24/23 22:07 98.1 F 63 16 148/78 100 09/24/23 21:12 70 18 135/86 99 09/24/23 20:02 63 18 138/85 98 09/24/23 18:35 62 18 152/89 99 Intake and Output 09/25/23 09/25/23 09/25/23 06:59 14:59 22:59 Other: # Voids 2 1 Results 09/25/23 04:30 09/25/23 04:30 Cardiac Enzymes 09/25/23 Range/Units 04:30 AST 150 H (13-35) U/L CBC 09/25/23 Range/Units 04:30 WBC 10.17 H (4.50-10.00) X 10*3/uL RBC 3.82 L (4.10-5.20) X 10*6/uL Hgb 14.2 (12.0-15.0) g/dL Hct 42.6 (37.2-46.3) % Plt Count 197 (140-440) X 10*3/uL Comprehensive Metabolic Panel 09/25/23 Range/Units 04:30 Sodium 142 (135-145) mmol/L Potassium 2.6 A* (3.5-5.5) mmol/L Chloride 112 H (96-109) mmol/L Carbon Dioxide 15.2 L (21.6-31.8) mmol/L BUN 22.5 (9.0-27.0) mg/dL Creatinine 1.7 H (0.6-1.5) mg/dL Glucose 83 (70-110) mg/dL Calcium 8.8 (8.7-10.3) mg/dL AST 150 H (13-35) U/L ALT 46 H (8-44) U/L Alkaline Phosphatase 82 (41-126) U/L Total Protein 5.7 L (6.2-8.2) g/dL Albumin 3.6 L (3.8-4.9) g/dL Current Medications Generic Name Dose Route Start Last Admin Trade Name Freq PRN Reason Stop Dose Admin Hydrocodone Bitart/Acetaminophen 1 each 09/25/23 13:13 Hydrocodone/Apap 5-325mg 1 Each Tab PO Q6HR PRN Pain Allopurinol 300 mg 09/25/23 09:00 09/25/23 10:04 Allopurinol 300 Mg Tab PO Not Given DAILY [facility] Amlodipine Besylate 10 mg 09/25/23 09:00 09/25/23 08:29 Amlodipine 10 Mg Tab PO 10 mg DAILY ADITI Administration Aspirin 81 mg 09/25/23 09:00 09/25/23 08:28 Aspirin 81 Mg PO 81 mg DAILY ADITI Administration Atorvastatin Calcium 40 mg 09/25/23 09:00 09/25/23 08:29 Atorvastatin 40 Mg Tab PO 40 mg DAILY [facility] Administration Colchicine 0.6 mg 09/25/23 09:00 Colchicine 0.6 Mg Each PO DAILY PRN gout flare Fenofibrate 160 mg 09/25/23 09:00 09/25/23 08:28 Fenofibrate 160 Mg Tab PO 160 mg DAILY ADITI Administration Folic Acid 1 mg 09/25/23 09:00 09/25/23 08:29 Folic Acid 1 Mg Tab PO 1 mg DAILY [facility] Administration Heparin Sodium (Porcine) 5,000 unit 09/25/23 21:00 Heparin Sodium,Porcine 5,000 Unit/Ml 1 Ml Vial SQ Q12HR [facility] Hydromorphone HCl 1 mg 09/24/23 17:06 09/25/23 17:56 Hydromorphone 1 Mg/Ml 1 Ml Syringe IVP 1 mg Q4HR PRN Administration Pain Potassium Chloride 40 meq/ 1,020 mls @ 130 mls/hr 09/25/23 13:15 Sodium Chloride IV .Q7H51M [facility] Meropenem 1 gm/ Sodium 100 mls @ 33.333 mls/hr 09/26/23 00:00 Chloride IVPB Q12H [facility] Ketoconazole 1 applic 09/25/23 09:00 Ketoconazole 2% Shampoo 1 Applic/Ml TOPICAL Q3D PRN scalp irritation Levothyroxine Sodium 75 mcg 09/25/23 09:00 09/25/23 08:29 Levothyroxine 75 Mcg Tab PO 75 mcg DAILY [facility] Administration Lorazepam 2 mg 09/24/23 20:57 Lorazepam 2 Mg/Ml Inj IV 09/26/23 20:57 Q10M PRN CIWA 16 or higher Lorazepam 1 mg 09/24/23 20:57 Lorazepam 2 Mg/Ml Inj IV Q2HR PRN CIWA 8 or 9 Lorazepam 1 mg 09/24/23 20:57 Lorazepam 2 Mg/Ml Inj IV Q1HR PRN CIWA 10 to 15 Lorazepam 1 mg 09/24/23 20:57 Lorazepam 1 Mg Tab PO Q1HR PRN Alcohol Withdrawal Lorazepam 2 mg 09/24/23 20:57 Lorazepam 1 Mg Tab PO Q3HR PRN Ciwa 8 To 9 Lorazepam 2 mg 09/24/23 20:57 Lorazepam 1 Mg Tab PO Q2HR PRN Ciwa 10 or greater Lorazepam 1 mg 09/24/23 20:57 Lorazepam 1 Mg Tab PO Q4HR PRN Ciwa 6 To 7 Lorazepam 0.5 mg 09/24/23 20:57 Lorazepam 0.5 Mg Tab PO Q4HR PRN [place] 4 To 5 Losartan Potassium 100 mg 09/25/23 09:00 09/25/23 08:28 Losartan 50 Mg Tab PO 100 mg DAILY ADITI Administration Metoprolol Tartrate 25 mg 09/25/23 09:00 09/25/23 08:29 Metoprolol Tartrate 25 Mg Tab PO 25 mg BID ADITI Administration Miscellaneous Information 1 each 09/25/23 13:14 Magnesium Replacement Protocol 1 Each Misc MISCELLANE DAILY PRN Per Protocol Protocol Miscellaneous Information 1 each 09/25/23 13:14 Potassium Replacement Protocol 1 Each Misc MISCELLANE DAILY PRN Per Protocol Protocol Multivitamins 1 each 09/25/23 09:00 09/25/23 08:29 Multivitamins, Thera 1 Each Tab PO 1 each DAILY ADITI Administration Naloxone HCl 0.2 mg 09/24/23 20:54 Naloxone 0.4 Mg/Ml 1 Ml Vial IV Q2M PRN Opioid Reversal Non-Formulary Medication 0.5 film 09/25/23 09:00 09/25/23 14:20 Buprenorphine Hcl/Naloxone Hcl [Suboxone 8 Mg-2 Mg Sl Film] SUBLINGUAL Not Given BID@0900,1400 ADITI Ondansetron HCl 4 mg 09/24/23 17:06 09/25/23 02:13 Ondansetron 4 Mg/2 Ml Vial IVP 4 mg Q8HR PRN Administration Nausea And Vomiting Ondansetron HCl 4 mg 09/25/23 00:00 Ondansetron Odt 4 Mg Tab PO Q8HR PRN Nausea Thiamine HCl 100 mg 09/25/23 09:00 09/25/23 08:29 Thiamine 100 Mg Tab PO 100 mg DAILY ADITI Administration Intake and Output 09/25/23 09/25/23 09/25/23 06:59 14:59 22:59 Other: # Voids 2 1 09/25/23 04:30 09/25/23 04:30
[2023-09-25] MEDS: SODIUM CHLORIDE 0.9% 1,000 ML with POTASSIUM CHLORIDE 40 MEQ IV SCH (18:12)
[2023-09-25] MEDS: HEPARIN SODIUM,PORCINE 5,000 UNIT/ML 1 ML VIAL SQ SCH (20:15)
--- NOTE | 2023-09-25 23:27 | HP ---
HISTORY AND PHYSICAL CHIEF COMPLAINT: Chest and abdominal pain. HISTORY OF PRESENT ILLNESS: This is a 53-year-old woman with a past medical history of multiple medical problems, including hypertension, hyperlipidemia, was admitted due to chest pain and abdominal pain. The pain was felt in the epigastrium with some radiation to the back and flank. The patient had a detailed evaluation in the ER which showed elevated WBC, severe hypokalemia, creatinine 2.24, and lipase is 5586, and the patient was admitted for evaluation and treatment. There is no history of fever, rigors, or chills at this time. PAST MEDICAL HISTORY: History of hypertension, hyperlipidemia, history of myocardial infarction. HOME MEDICATIONS: Reviewed include nitroglycerin. Rest of the history, rest of the chart, rest of home medications reviewed. ALLERGIES: None. FAMILY HISTORY: History of alcoholism. REVIEW OF SYSTEMS: Alcohol intake heavy half a pint and smoking. Review of 14-point review is negative except as mentioned earlier. PHYSICAL EXAMINATION: VITAL SIGNS: Pulse is 66, blood pressure 170/69, respirations 17. HEENT: Conjunctivae normal. CARDIOVASCULAR: S1 and S2. RESPIRATION: Breath sounds diminished at the bases. A few scattered rhonchi. ABDOMEN: Soft, mild diffuse tenderness in the epigastrium. No guarding. No mass palpable. No ascites. Bowel sounds diminished. LEGS: No edema. No swelling. NERVOUS SYSTEM: No focal deficit. SKIN: No ulcer, rash, bleeding. JOINTS: No active deforming arthropathy. LABORATORY DATA: WBC 10.7, potassium 2.6, rest of the labs are reviewed. ASSESSMENT: 1. Abdominal pain with acute severe pancreatitis. 2. History of EtOH. 3. Elevated LFTs, possibly alcoholic hepatitis. 4. Severe hypokalemia. 5. Acute renal failure possibly prerenal acute tubular necrosis. 6. Elevated WBC. 7. Hypertension. 8. Hyperlipidemia. 9. History of myocardial infarction. 10.History of cardiac catheterization. RECOMMENDATIONS AND DISCUSSION: This is a 53-year-old woman presented with multiple complex medical issues, we will monitor the patient closely. Continue the current medications, symptomatic treatment. Otherwise, I would recommend symptomatic treatment for the pancreatitis. I would also recommend empiric antibiotics. The EKG showed incomplete right bundle branch pattern. The troponins are negative at this time. We will continue to monitor. The patient does not have any chest pains anymore. The ultrasound and CAT scan was reviewed. CAT scan showed significant changes of possible pancreatitis and dilated CBD. Ultrasound showed hydropic gallbladder with some sludge. I would also recommend empiric antibiotics for multiple complex medical issues as listed above to cover the possibility of necrotizing pancreatitis and other features. Prognosis guarded. Further recommendations to follow. MMODL / IJN: [id number] /
[2023-09-25] MEDS: MEROPENEM 1 GM in SODIUM CHLORIDE 0.9% 100 ML IVPB SCH (23:30)
[2023-09-25] MEDS: 0.9% NACL WITH KCL 40 MEQ/L 1,000 ML IV SCH (23:30)
--- NOTE | 2023-09-26 03:42 | P.GSCN ---
History of Present Illness Consult date: 09/25/23 Reason for Consult: pancreatitis History of present illness: Chief Complaint: Chest Pain, epigastric pain Pancreatitis Stated Complaint: Chest/Abd Pain-Abnormal Labs-sent by Drs Time Seen by Provider: 09/24/23 15:03 Source: patient, RN notes reviewed, old records reviewed Mode of arrival: ambulatory Limitations: no limitations - History of Present Illness Initial Comments: This is a 53-year-old female to the ER today. She is present today for evaluation of chest pain abdominal pain back pain pain radiating around the right side with nausea no vomiting patient states she feels significantly unwell significantly sick. No fever symptoms began yesterday worsening into today and significantly worsening tonight Complaint: chest pain, other (Abdominal pain epigastric pain right-sided flank pain and back pain) Home Medications Medication Instructions Recorded Confirmed Buprenorphine HCl/Naloxone HCl 0.5 film SL BID@0900,1400 09/24/23 09/24/23 [Suboxone 8 mg-2 mg Sl Film] Colchicine 0.6 mg PO DAILY PRN 09/24/23 09/24/23 Fenofibrate Nanocrystallized 145 mg PO DAILY 09/24/23 09/24/23 [Fenofibrate] Ibuprofen [Motrin] 800 mg PO BID PRN 09/24/23 09/24/23 Ketoconazole 2% Shampoo [Nizoral] 1 applic TOPICAL Q3D PRN 09/24/23 09/24/23 Levothyroxine Sodium [Synthroid] 75 mcg PO DAILY 09/24/23 09/24/23 Losartan Potassium 100 mg PO DAILY 09/24/23 09/24/23 Nitroglycerin Sl Tabs [Nitrostat] 0.4 mg SL Q5M PRN 09/24/23 09/24/23 Ondansetron Odt [Zofran Odt] 4 mg PO Q8HR PRN 09/24/23 09/24/23 Rosuvastatin [Crestor] 20 mg PO DAILY 09/24/23 09/24/23 allopurinoL [Zyloprim] 300 mg PO DAILY 09/24/23 09/24/23 amLODIPine [Norvasc] 10 mg PO DAILY 09/24/23 09/24/23 Previous Rx's Medication Instructions Recorded Aspirin 81 mg PO DAILY #90 chew 08/13/17 Metoprolol Tartrate [Lopressor] 25 mg PO BID #180 tab 08/13/17 Allergies Allergy/AdvReac Type Severity Reaction Status Date / Time No Known Allergies Allergy Verified 09/24/23 17:28 Review of Systems ROS Statement: Those systems with pertinent positive or pertinent negative responses have been documented in the HPI. ROS Other: All systems not noted in ROS Statement are negative. EKG Findings - EKG Comments: EKG Findings:: EKG sinus bradycardia 55 IL 211 QRS 117 QTc 404 Past Medical History Past Medical History: Hyperlipidemia, Hypertension, Myocardial Infarction ([place]) History of Any Multi-Drug Resistant Organisms: None Reported Past Surgical History: Heart Catheterization, Hysterectomy Additional Past Surgical History / Comment(s): ; heart cath no stent 08/11/2017 Past Anesthesia/Blood Transfusion Reactions: No Reported Reaction Past Psychological History: No Psychological Hx Reported Past Alcohol Use History: Occasional Past Drug Use History: None Reported - Past Family History Father Additional Family Medical History / Comment(s): pt's father due to alcoholism General Exam Limitations: no limitations General appearance: alert, in no apparent distress Head exam: Present: atraumatic, normocephalic, normal inspection Eye exam: Present: normal appearance, PERRL, EOMI. Absent: scleral icterus, conjunctival injection, periorbital swelling ENT exam: Present: normal exam, mucous membranes moist Neck exam: Present: normal inspection. Absent: tenderness, meningismus, lymphadenopathy Respiratory exam: Present: normal lung sounds bilaterally. Absent: respiratory distress, wheezes, rales, rhonchi, stridor Cardiovascular Exam: Present: regular rate, normal rhythm, normal heart sounds. Absent: systolic murmur, diastolic murmur, rubs, gallop, clicks GI/Abdominal exam: Present: soft, normal bowel sounds. Absent: distended, tenderness, guarding, rebound, rigid Extremities exam: Present: normal inspection, full ROM, normal capillary refill. Absent: tenderness, pedal edema, joint swelling, calf tenderness Back exam: Present: normal inspection Neurological exam: Present: alert, oriented X3, CN II-XII intact Psychiatric exam: Present: normal affect, normal mood Skin exam: Present: warm, dry, intact, normal color. Absent: rash Course Vital Signs 09/24/23 09/24/23 09/24/23 14:58 18:35 20:02 Temperature 97.3 F L Pulse Rate 58 L 62 63 Respiratory 18 18 18 Rate Blood Pressure 133/84 152/89 138/85 O2 Sat by Pulse 100 99 98 Oximetry Clinical Impression: Acute hypokalemia, Acute pancreatitis, Abdominal pain, Weakness, Dehydration EtOH indused, imaging show sludge in GB hydrate aggressively Bowel rest f/u HTC/ LFT will f/u Past Medical History Past Medical History: Hyperlipidemia, Hypertension, Myocardial Infarction ([place]) Last Myocardial Infarction Date:: unknown History of Any Multi-Drug Resistant Organisms: None Reported Past Surgical History: Heart Catheterization, Hysterectomy Additional Past Surgical History / Comment(s): ; heart cath no stent 08/11/2017 Past Anesthesia/Blood Transfusion Reactions: No Reported Reaction Past Psychological History: No Psychological Hx Reported Smoking Status: Current every day smoker Past Alcohol Use History: Occasional Past Drug Use History: None Reported - Past Family History Father Additional Family Medical History / Comment(s): pt's father due to alcoholism Medications and Allergies Home Medications Medication Instructions Recorded Confirmed Type Aspirin 81 mg PO DAILY #90 chew 08/13/17 09/24/23 Rx Metoprolol Tartrate [Lopressor] 25 mg PO BID #180 tab 08/13/17 09/24/23 Rx Buprenorphine HCl/Naloxone HCl 0.5 film SL BID@0900,1400 09/24/23 09/24/23 History [Suboxone 8 mg-2 mg Sl Film] Colchicine 0.6 mg PO DAILY PRN 09/24/23 09/24/23 History Fenofibrate Nanocrystallized 145 mg PO DAILY 09/24/23 09/24/23 History [Fenofibrate] Ibuprofen [Motrin] 800 mg PO BID PRN 09/24/23 09/24/23 History Ketoconazole 2% Shampoo [Nizoral] 1 applic TOPICAL Q3D PRN 09/24/23 09/24/23 History Levothyroxine Sodium [Synthroid] 75 mcg PO DAILY 09/24/23 09/24/23 History Losartan Potassium 100 mg PO DAILY 09/24/23 09/24/23 History Nitroglycerin Sl Tabs [Nitrostat] 0.4 mg SL Q5M PRN 09/24/23 09/24/23 History Ondansetron Odt [Zofran Odt] 4 mg PO Q8HR PRN 09/24/23 09/24/23 History Rosuvastatin [Crestor] 20 mg PO DAILY 09/24/23 09/24/23 History allopurinoL [Zyloprim] 300 mg PO DAILY 09/24/23 09/24/23 History amLODIPine [Norvasc] 10 mg PO DAILY 09/24/23 09/24/23 History Allergies Allergy/AdvReac Type Severity Reaction Status Date / Time No Known Allergies Allergy Verified 09/24/23 17:28 Surgical - Exam Vital Signs Temp Pulse Resp BP Pulse Ox 97.3 F L 58 L 18 133/84 100 09/24/23 14:58 09/24/23 14:58 09/24/23 14:58 09/24/23 14:58 09/24/23 14:58 Results - Labs 09/25/23 04:30 09/25/23 04:30 Abnormal Lab Results - Last 24 Hours (Table) 09/24/23 09/25/23 09/25/23 Range/Units 15:26 04:30 04:30 WBC 10.17 H (4.50-10.00) X 10*3/uL RBC 3.82 L (4.10-5.20) X 10*6/uL MCV 111.5 H (80.0-97.0) FL MCH 37.2 H (27.0-32.0) pg Immature Gran # 0.05 H (0.00-0.04) X 10*3/uL Neutrophils # 9.54 H (1.80-7.70) X 10*3/uL Lymphocytes # 0.31 L (0.90-5.00) X 10*3/uL Eosinophils # 0 L (0.04-0.35) X 10*3/uL Macrocytosis (manual) 2+ A Potassium 2.6 A* (3.5-5.5) mmol/L Chloride 112 H (96-109) mmol/L Carbon Dioxide 15.2 L (21.6-31.8) mmol/L Anion Gap 14.80 H (4.00-12.00) mmol/L Creatinine 1.7 H (0.6-1.5) mg/dL Est GFR (CKD-EPI) 36 L (>=60) GGT 68 H (0-38) U/L AST 150 H (13-35) U/L ALT 46 H (8-44) U/L Total Protein 5.7 L (6.2-8.2) g/dL Albumin 3.6 L (3.8-4.9) g/dL Lipase 1445 H (14-63) U/L Diabetes panel 09/25/23 Range/Units 04:30 Sodium 142 (135-145) mmol/L Potassium 2.6 A* (3.5-5.5) mmol/L Chloride 112 H (96-109) mmol/L Carbon Dioxide 15.2 L (21.6-31.8) mmol/L BUN 22.5 (9.0-27.0) mg/dL Creatinine 1.7 H (0.6-1.5) mg/dL Glucose 83 (70-110) mg/dL Calcium 8.8 (8.7-10.3) mg/dL AST 150 H (13-35) U/L ALT 46 H (8-44) U/L Alkaline Phosphatase 82 (41-126) U/L Total Protein 5.7 L (6.2-8.2) g/dL Albumin 3.6 L (3.8-4.9) g/dL Calcium panel 09/25/23 Range/Units 04:30 Calcium 8.8 (8.7-10.3) mg/dL Phosphorus 2.5 (2.4-5.1) mg/dL Albumin 3.6 L (3.8-4.9) g/dL Pituitary panel 09/25/23 Range/Units 04:30 Sodium 142 (135-145) mmol/L Potassium 2.6 A* (3.5-5.5) mmol/L Chloride 112 H (96-109) mmol/L Carbon Dioxide 15.2 L (21.6-31.8) mmol/L BUN 22.5 (9.0-27.0) mg/dL Creatinine 1.7 H (0.6-1.5) mg/dL Glucose 83 (70-110) mg/dL Calcium 8.8 (8.7-10.3) mg/dL Adrenal panel 09/25/23 Range/Units 04:30 Sodium 142 (135-145) mmol/L Potassium 2.6 A* (3.5-5.5) mmol/L Chloride 112 H (96-109) mmol/L Carbon Dioxide 15.2 L (21.6-31.8) mmol/L BUN 22.5 (9.0-27.0) mg/dL Creatinine 1.7 H (0.6-1.5) mg/dL Glucose 83 (70-110) mg/dL Calcium 8.8 (8.7-10.3) mg/dL Total Bilirubin 0.5 (0.3-1.2) mg/dL AST 150 H (13-35) U/L ALT 46 H (8-44) U/L Alkaline Phosphatase 82 (41-126) U/L Total Protein 5.7 L (6.2-8.2) g/dL Albumin 3.6 L (3.8-4.9) g/dL
[2023-09-26 09:24] LABS: Basophils # (A) 0.04 X 10*3/uL (0.00-0.10); Basophils % (A) 0.4 %; Eosinophils # (A) 0 X 10*3/uL (0.04-0.35); Eosinophils % (A) 0 %; HCT 35.3 % (37.2-46.3); HGB 11.9 g/dL (12.0-15.0); Lymphocytes # (A) 0.59 X 10*3/uL (0.90-5.00); Lymphocytes % (A) 5.8 %; MCH 37.1 pg (27.0-32.0); MCHC 33.7 g/dL (32.0-37.0); Mean Platelet Volume 9.5 FL (9.5-12.2); Monocytes # (A) 0.57 X 10*3/uL (0.20-1.00); Monocytes % (A) 5.6 %; NRBC Per 100 WBC 0 X 10*3/uL (0.00-0.01); Neutrophils # (A) 8.91 X 10*3/uL (1.80-7.70); Neutrophils % (A) 87.8 %; Platelet Count 175 X 10*3/uL (140-440); RBC 3.21 X 10*6/uL (4.10-5.20); RDW 12.7 % (11.5-14.5); WBC 10.15 X 10*3/uL (4.50-10.00)
[2023-09-26 09:49] LABS: Amylase 180 U/L (23-121); Magnesium 1.6 mg/dL (1.5-2.4)
[2023-09-26 09:52] LABS: ALT 42 U/L (8-44); AST 141 U/L (13-35); Albumin 3.3 g/dL (3.8-4.9); Albumin/Globulin Ratio 1.74 Ratio (1.60-3.17); Alkaline Phosphatase 83 U/L (41-126); BUN/Creat Ratio 11.69 Ratio (12.00-20.00); Blood Urea Nitrogen 18.7 mg/dL (9.0-27.0); Calcium 8.5 mg/dL (8.7-10.3); Carbon Dioxide 17.9 mmol/L (21.6-31.8); Chloride 112 mmol/L (96-109); Globulin 1.9 g/dL (1.6-3.3); Glucose 95 mg/dL (70-110); Lipase 217 U/L (14-63); Potassium 2.6 mmol/L (3.5-5.5); Sodium 141 mmol/L (135-145); Total Bilirubin 0.4 mg/dL (0.3-1.2); Total Protein 5.2 g/dL (6.2-8.2)
--- NOTE | 2023-09-26 09:54 | P.PN ---
Progress Note - Text Progress Note Date: 09/26/23 patient feels better today. On exam vital signs are stable. Abdomen soft. Gallstone pancreas. Patient was scheduled for laparoscopically cholecystectomy exam.
--- NOTE | 2023-09-26 11:13 | P.PN ---
Subjective Progress Note Date: 09/26/23 Progress note September 26, 2023 Patient is doing well from cardiovascular standpoint. She denies having any a ctive chest pain chest pressure shortness of breath. She complains of abdominal and epigastric pain she is feeling nauseous. She is on clear liquid diets. She is tolerating her cardiac medications. Blood pressure is well-controlled. Sinus rhythm on telemetry. HISTORY OF PRESENTING ILLNESS 53-year-old presented to the hospital because of abdominal pain nausea, poor appetite. She has a past medical history of hypertension, dyslipidemia. In 2018 patient had mild elevation of troponin and was treated for NSTEMI. She got heart catheterization which showed 55% proximal RCA disease which was negative by FFR. This time on admission she was noticed to have lipase elevation 5000 with transaminitis. Patient reported that she binge drinks alcohol. Hb 14, MCV 110, potassium 2.6, creatinine 2.24 on admission, repeat 1.7, Her ECG showed sinus rhythm with flattened T waves which are consistent with hypokalemia. CT abdomen showed pancreatitis and bile duct dilatation REVIEW OF SYSTEMS 14 point review of system is negative except what is mentioned above in HPI. PHYSICAL EXAMINATION Vital signs reviewed. Head: Normocephalic. Eyes: Sclerae nonicteric. Neck: Brisk carotid upstroke, no jugular venous distention. Lungs: Clear to auscultation. Heart: Regular rate and rhythm, S1-S2, no S3, no murmur or rub. Abdomen: Soft nontender, positive bowel sounds. Extremities: No edema, intact distal pulses. Neuro: Alert, oritented, no focal deficits. Detailed neuro exam was not performed. ASSESSMENT Atypical chest pain and epigastric pain due to pancreatitis Binge alcohol drinking Moderate CAD proximal RCA 55% in 2018 Tobacco use Hypertension Dyslipidemia Hypokalemia due to nausea vomiting DIANA due to dehydration and likely prerenal PLAN Patient's chest pain is most likely related to epigastric pain from pancreatitis. It is reproducible on palpation. Patient's troponins are negati ve and is ruled out of acute coronary syndrome with negative ECG and troponins. Obtain echocardiogram to rule out alcoholic cardiomyopathy rePlace electrolytes, keep potassium near 4, magnesium near 2. Continue medications aspirin, amlodipine, losartan, metoprolol. Do not resume fenofibrate at discharge as it it is not safe to be used in pancreatitis. Consider statins if liver functions are normal on discharge Jeremiah August MD, [facility] [place] Thank you for allowing [facility] to participate in this patient's care. Feel free to reach out in case of any followup questions Objective - Vital Signs Vital signs: Vital Signs Temp 98.6 F 09/26/23 07:00 Pulse 85 09/26/23 08:00 Resp 16 09/26/23 08:00 BP 123/71 09/26/23 07:00 Pulse Ox 99 09/26/23 07:00 FiO2 Intake & Output 09/25/23 09/26/23 09/26/23 18:59 06:59 18:59 Other: # Voids 1 3 - Labs CBC & Chem 7: 09/26/23 06:33 09/26/23 06:33 Labs: Abnormal Lab Results - Last 24 Hours (Table) 09/26/23 09/26/23 Range/Units 06:33 06:33 WBC 10.15 H (4.50-10.00) X 10*3/uL RBC 3.21 L (4.10-5.20) X 10*6/uL Hgb 11.9 L (12.0-15.0) g/dL Hct 35.3 L (37.2-46.3) % MCV 110.0 H (80.0-97.0) FL MCH 37.1 H (27.0-32.0) pg Neutrophils # 8.91 H (1.80-7.70) X 10*3/uL Lymphocytes # 0.59 L (0.90-5.00) X 10*3/uL Eosinophils # 0 L (0.04-0.35) X 10*3/uL Potassium 2.6 A* (3.5-5.5) mmol/L Chloride 112 H (96-109) mmol/L Carbon Dioxide 17.9 L (21.6-31.8) mmol/L Creatinine 1.6 H (0.6-1.5) mg/dL Est GFR (CKD-EPI) 38 L (>=60) BUN/Creatinine Ratio 11.69 L (12.00-20.00) Ratio Calcium 8.5 L (8.7-10.3) mg/dL AST 141 H (13-35) U/L Total Protein 5.2 L (6.2-8.2) g/dL Albumin 3.3 L (3.8-4.9) g/dL Amylase 180 H (23-121) U/L Lipase 217 H (14-63) U/L
[2023-09-26] MEDS: POTASSIUM CHLORIDE ER 20 MEQ TAB.ER PO SCH (11:30)
[2023-09-26 18:47] LABS: African American GFR (CKD) 51 (>60 ml/min/1.73 sqM); Anion Gap 9 mmol/L; Blood Urea Nitrogen 15 mg/dL (7-17); Calcium 8.5 mg/dL (8.4-10.2); Carbon Dioxide 16 mmol/L (22-30); Chloride 115 mmol/L (98-107); Glucose 107 mg/dL (74-99); Non-African American GFR(CKD) 45 (>60 ml/min/1.73 sqM); Potassium 3.1 mmol/L (3.5-5.1); Sodium 140 mmol/L (137-145)
--- NOTE | 2023-09-26 23:08 | PN ---
PROGRESS NOTE DATE OF SERVICE: 09/26/2023 SUBJECTIVE: This is a 53-year-old woman, who was admitted with acute history of pancreatitis in etiology, is being closely monitored. The patient has elevated LFTs. The patient has severe hypokalemia. Lipase is slightly better. PAST MEDICAL HISTORY: Reviewed. REVIEW OF SYSTEMS: A 14-point review is negative except as mentioned earlier. CURRENT MEDICATIONS: Include meropenem and rest of medications noted. PHYSICAL EXAMINATION: VITAL SIGNS: Pulse is 85, blood pressure 110/67, respirations 16. CHEST: A few scattered rhonchi. ABDOMEN: Soft, mild diffuse tenderness. No guarding. No rigidity. No mass palpable. LEGS: No edema. NERVOUS SYSTEM: Nonfocal. LABORATORY DATA: WBC 10.15, potassium 2.6. ASSESSMENT: 1. Abdominal pain with acute history of pancreatitis. 2. History of EtOH. 3. Severe hypokalemia. 4. Elevated LFTs, possibly alcoholic hepatitis. 5. Acute renal failure, possibly prerenal acute tubular necrosis. 6. Elevated WBC. 7. Hypertension. 8. Hyperlipidemia. 9. Multiple medical issues. RECOMMENDATIONS AND DISCUSSION: Recommend to continue current management and continue symptomatic treatment. Creatinine has improved slightly, but this patient has persistent severe hypokalemia. I would recommend at least 160 mg of potassium and then repeat potassium in the evening and administer potassium again. Magnesium was found to be 1.6. I would recommend 2 g of magnesium as well per protocol. Otherwise, we will continue to monitor. Guarded prognosis. Further recommendations to follow. See orders for further details. MMODL / IJN: [id number] /
[2023-09-27] MEDS: POTASSIUM CHLORIDE ER 20 MEQ TAB.ER PO SCH (00:06)
[2023-09-27] MEDS: COLCHICINE 0.6 MG EACH PO PRN (03:15)
[2023-09-27] MEDS: HYDROcodone/APAP 5-325MG 1 EACH TAB PO PRN (06:10)
[2023-09-27 06:43] LABS: Basophils # (A) 0.1 k/uL (0-0.2); Basophils % (A) 1 %; Eosinophils # (A) 0.6 k/uL (0-0.7); Eosinophils % (A) 6 %; HGB 13.6 gm/dL (11.4-16.0); Lymphocytes # (A) 0.8 k/uL (1.0-4.8); Lymphocytes % (A) 9 %; MCH 36.5 pg (25.0-35.0); MCHC 31.5 g/dL (31.0-37.0); Macrocytosis Marked; Mean Platelet Volume 7.3; Monocytes # (A) 0.5 k/uL (0-1.0); Monocytes % (A) 5 %; Neutrophils # (A) 7.3 k/uL (1.3-7.7); Neutrophils % (A) 77 %; Platelet Count 192 k/uL (150-450); RBC 3.71 m/uL (3.80-5.40); RDW 12.7 % (11.5-15.5); WBC 9.4 k/uL (3.8-10.6)
[2023-09-27 06:46] LABS: MCV 115.8 fL (80.0-100.0)
[2023-09-27] MEDS: ONDANSETRON 4 MG/2 ML VIAL ONE (08:47)
[2023-09-27] MEDS: IV FLUID CONTINUATION 800 ML IV ONE ×2 (08:47)
[2023-09-27 08:57] LABS: Lipase 153 U/L (14-63)
[2023-09-27 08:58] LABS: ALT 59 U/L (8-44); AST 199 U/L (13-35); Albumin 3.7 g/dL (3.8-4.9); Albumin/Globulin Ratio 1.54 Ratio (1.60-3.17); Alkaline Phosphatase 98 U/L (41-126); Amylase 83 U/L (23-121); BUN/Creat Ratio 9.38 Ratio (12.00-20.00); Blood Urea Nitrogen 12.2 mg/dL (9.0-27.0); Calcium 8.6 mg/dL (8.7-10.3); Carbon Dioxide 15.7 mmol/L (21.6-31.8); Chloride 114 mmol/L (96-109); Globulin 2.4 g/dL (1.6-3.3); Glucose 89 mg/dL (70-110); Potassium 3.9 mmol/L (3.5-5.5); Sodium 140 mmol/L (135-145); Total Bilirubin 0.5 mg/dL (0.3-1.2); Total Protein 6.1 g/dL (6.2-8.2)
[2023-09-27] MEDS: LACTATED RINGERS 1,000 ML IV ONE (09:00)
[2023-09-27] MEDS: LIDOCAINE 1%-EPI 1:100,000 50 ML VIAL SQ ONE ×2 (09:30→10:00)
[2023-09-27] MEDS ORDERED: NEOSTIGMINE 1 MG/ML 10 ML VIAL ONE (09:31)
[2023-09-27] MEDS ORDERED: fentaNYL (PF) 50 MCG/ML 2 ML AMP ONE (09:31)
[2023-09-27] MEDS ORDERED: ceFAZolin 1 GM/50 ML BAG (PMX) ONE (09:31)
[2023-09-27] MEDS ORDERED: PHENYLEPHRINE-0.9% NACL SYG 1,000 MCG/10 ML SYRINGE ONE (09:31)
[2023-09-27] MEDS ORDERED: GLYCOPYRROLATE 0.2 MG/ML 2 ML VIAL ONE (09:31)
[2023-09-27] MEDS ORDERED: SUCCINYLCHOLINE CHLORIDE 200 MG/10 ML VIAL IV ONE (09:31)
[2023-09-27] MEDS ORDERED: PROPOFOL 10 MG/ML 20 ML VIAL IV ONE (09:31)
[2023-09-27] MEDS ORDERED: ROCURONIUM 10 MG/ML (5 ML VIAL) IV ONE (09:31)
[2023-09-27] MEDS ORDERED: MIDAZOLAM 2 MG/2 ML VIAL ONE (09:31)
[2023-09-27] MEDS ORDERED: LIDOCAINE 1% INJ 10MG/ML (20 ML MDV) ONE (09:31)
[2023-09-27] MEDS ORDERED: HYDROmorphone (PF) 1 MG/ML ONE (09:31)
[2023-09-27] MEDS: SODIUM CHLORIDE 0.9% 100 ML with ceFAZolin 2,000 MG IV ONE (10:00)
--- NOTE | 2023-09-27 10:04 | CA ---
Transthoracic Echo Report Name: Catia Dye Age: 53 Gender: F : 1970 Exam Date: 09/27/2023 07:21 Exam Location: [facility] Ht (in): 65 Wt (lb): 159 Ordering Physician: Jeremiah August MD ([id number]) Attending/Referring Phys: Hospital Plan Administrator Maddie Suarez RCS Procedure CPT: Indications: Alocholic cardiomyopathy Cardiac Hx: Technical Quality: Good Contrast 1: Total Dose (mL): Contrast 2: Total Dose (mL): MEASUREMENTS (Male / Female) Normal Values 2D ECHO LV Diastolic Diameter PLAX 4.6 cm 4.2 - 5.9 / 3.9 - 5.3 cm LV Systolic Diameter PLAX 3.2 cm IVS Diastolic Thickness 0.9 cm 0.6 - 1.0 / 0.6 - 0.9 cm LVPW Diastolic Thickness 0.9 cm 0.6 - 1.0 / 0.6 - 0.9 cm LV Relative Wall Thickness 0.4 RV Internal Dim ED PLAX 3.3 cm LVOT Diameter 2.1 cm LV Diastolic Volume MOD BP 117.0 cm??? 67 - 155 / 56 - 104 cm??? LV Systolic Volume MOD BP 54.8 cm??? 22 - 58 / 19 - 49 cm??? LV Ejection Fraction MOD BP 53.1 % >= 55 % LV Cardiac Index MOD BP 2305.5 cm???/min???m??? LV Diastolic Volume MOD 4C 107.5 cm??? LV Systolic Volume MOD 4C 48.3 cm??? LV Ejection Fraction MOD 4C 55.0 % LV Cardiac Index MOD 4C 2194.3 cm???/min???m??? LV Diastolic Length 4C 8.6 cm LV Systolic Length 4C 7.5 cm LV Diastolic Volume MOD 2C 125.1 cm??? LV Systolic Volume MOD 2C 60.3 cm??? LV Ejection Fraction MOD 2C 51.7 % LV Cardiac Index MOD 2C 2399.6 cm???/min???m??? LV Diastolic Length 2C 8.8 cm LV Systolic Length 2C 7.8 cm LA Volume 54.3 cm??? 18 - 58 / 22 - 52 cm??? LA Volume Index 29.6 cm???/m??? 16 - 28 cm???/m??? DOPPLER AV Peak Velocity 169.8 cm/s AV Peak Gradient 11.5 mmHg AV Mean Velocity 114.7 cm/s AV Mean Gradient 6.1 mmHg AV Velocity Time Integral 35.6 cm LVOT Peak Velocity 120.9 cm/s LVOT Peak Gradient 5.8 mmHg LVOT Velocity Time Integral 24.8 cm LVOT Stroke Volume 87.8 cm??? LVOT Stroke Volume Index 48.9 ml/m??? LVOT Cardiac Index 3256.8 cm???/min???m??? AV Area Cont Eq vti 2.5 cm??? AV Area Cont Eq pk 2.5 cm??? MV Area PHT 5.1 cm??? Mitral E Point Velocity 79.9 cm/s Mitral A Point Velocity 59.2 cm/s Mitral E to A Ratio 1.3 MV Deceleration Time 149.8 ms PV Peak Velocity 89.3 cm/s PV Peak Gradient 3.2 mmHg FINDINGS Left Ventricle Left ventricular ejection fraction is estimated at 50-55 %. Mildly increased left ventricular diastolic volume. Mildly increased left ventricular systolic volume. Mildly decreased left ventricular ejection fraction. No obvious regional wall motion abnormalities. Left ventricular wall thickness normal. Right Ventricle Mild right ventricular dilatation with normal function. Unable to estimate right ventricular systolic function. Right Atrium Normal right atrial size. Left Atrium Mildly increased left atrial volume. Mitral Valve Structurally normal mitral valve. No evidence for mitral valve prolapse. No mitral stenosis. Trace mitral regurgitation. Aortic Valve Trileaflet aortic valve. No aortic valve stenosis or regurgitation. Tricuspid Valve Structurally normal tricuspid valve. No tricuspid prolapse. No tricuspid stenosis. Trace tricuspid regurgitation. Pulmonic Valve Structurally normal pulmonic valve. No pulmonic stenosis. No pulmonic regurgitation. Pericardium No pericardial effusion. Aorta Normal size aortic root and proximal ascending aorta. CONCLUSIONS Left ventricular ejection fraction 50-55% Mild increased left ventricular wall thickness Mildly dilated left atrium Trace mitral regurgitation No pericardial effusion Previewed by: Dr. Fransisco Rodriguez DO (Electronically Signed) Final Date: 27 September 2023 10:04
[2023-09-27] MEDS ORDERED: HYDROmorphone 1 MG/ML 1 ML SYRINGE IVP PRN (10:32)
--- NOTE | 2023-09-27 10:32 | P.OP ---
Date of Procedure: 09/27/23 Preoperative Diagnosis: cholecystitis Postoperative Diagnosis: cholecystitis Procedure(s) Performed: laparoscopic cholecystectomy Anesthesia: ADA Surgeon: Mario Peralta Estimated Blood Loss (ml): 5 Pathology: other (gallbladder) Condition: stable Disposition: PACU Description of Procedure: The patient was placed on the operating table. The patient received a general endotracheal tube anesthesia. The patients abdomen was prepped and draped in the usual sterile fashion. Through an infraumbilical stab incision, the fascia of the anterior abdominal wall was grasped with a pair of Kochers and then the Veress needle was placed in the peritoneal cavity. Position of the Veress needle was confirmed with positive drop test. The abdomen was then insufflated. After adequate insufflation, the 10 mm trocar was placed in the peritoneal cavity. Following this the laparoscope was placed in the peritoneal cavity. The patient was placed in the head-up, right side up position and then a 5 mm trocar was placed in the right lateral and right subcostal position under direct visualization. A 8 mm trocar was placed in the epigastric position. The gallbladder was grasped in the fundus and infundibulum. Traction on the gallbladder was placed in the lateral and the cephalad positions. The triangle of Calot was visualized.. The cystic duct was bluntly dissected until the union of the cystic duct and common bile duct was seen. A critical view of safety was achieved. The cystic duct was then divided and sealed with the Harmonic scissors. A PDS Endoloop was then placed throughout the cystic duct stump. The cystic artery divided and sealed with the Harmonic scissors. The gallbladder was then removed from the liver bed using Harmonic scissors. The gallbladder was then extracted through the epigastric port site. Operative field was checked for any bleeding spots and Harmonic scissors was used to coagulate the liver bed. The abdomen was irrigated. The trocars were removed. The skin was closed using interrupted 3-0 Vicryl suture. Dermabond dressing were applied. The patient tolerated the procedure well.
[2023-09-27] MEDS: HYDROmorphone 0.5 MG/0.5 ML SYRINGE IVP ONE (11:00)
--- NOTE | 2023-09-27 12:18 | P.PN ---
Subjective Progress Note Date: 09/27/23 HISTORY OF PRESENTING ILLNESS 53-year-old presented to the hospital because of abdominal pain nausea, poor appetite. She has a past medical history of hypertension, dyslipidemia. In 2018 patient had mild elevation of troponin and was treated for NSTEMI. She got heart catheterization which showed 55% proximal RCA disease which was negative by FFR. This time on admission she was noticed to have lipase elevation 5000 with transaminitis. Patient reported that she binge drinks alcohol. Hb 14, MCV 110, potassium 2.6, creatinine 2.24 on admission, repeat 1.7, Her ECG showed sinus rhythm with flattened T waves which are consistent with hypokalemia. CT abdomen showed pancreatitis and bile duct dilatation September 26, 2023 Patient is doing well from cardiovascular standpoint. She denies having any act rosita chest pain chest pressure shortness of breath. She complains of abdominal and epigastric pain she is feeling nauseous. She is on clear liquid diets. She is tolerating her cardiac medications. Blood pressure is well-controlled. Sinus rhythm on telemetry. 09/26 Repeat blood work reveals WBC 9.4, hemoglobin 13.6 and platelet count 192. Sodium 140, potassium 3.9, chloride 114, CO2 15, BUN 12 and creatinine 1.3. AST 199, ALT 59, alkaline phosphatase 98. Lipase 153. Blood pressure 102/63, heart rate 64, pulse ox 99% on room air. Patient denies having any chest pain. She is scheduled for cholecystectomy today. Echocardiogram reveals EF of 50 to 55%, trace mitral regurgitation. PHYSICAL EXAMINATION Vital signs reviewed. Head: Normocephalic. Eyes: Sclerae nonicteric. Neck: Brisk carotid upstroke, no jugular venous distention. Lungs: Clear to auscultation. Heart: Regular rate and rhythm, S1-S2, no S3, no murmur or rub. Abdomen: Soft nontender, positive bowel sounds. Extremities: No edema, intact distal pulses. Neuro: Alert, oritented, no focal deficits. Detailed neuro exam was not performed. ASSESSMENT Atypical chest pain and epigastric pain due to pancreatitis Binge alcohol drinking Moderate CAD proximal RCA 55% in 2018 Tobacco use Hypertension Dyslipidemia Hypokalemia due to nausea vomiting DIANA due to dehydration and likely prerenal PLAN Patient's chest pain is most likely related to epigastric pain from pancreatitis. It is reproducible on palpation. Patient's troponins are negative and is ruled out of acute coronary syndrome with negative ECG and troponins. Continue medications aspirin, amlodipine, losartan, metoprolol. Do not resume fenofibrate at discharge as it it is not safe to be used in pancreatitis. Consider statins if liver functions are normal on discharge Nurse practitioner note has been reviewed, I agree with documented findings and plan of care. Patient was seen and examined. Objective - Vital Signs Vital signs: Vital Signs Temp 99.2 F 09/27/23 02:00 Pulse 64 09/27/23 02:00 Resp 16 09/27/23 02:00 BP 102/63 09/27/23 02:00 Pulse Ox 99 09/27/23 02:00 FiO2 Intake & Output 09/26/23 09/27/23 09/27/23 18:59 06:59 18:59 Intake Total 240 Balance 240 Intake: Oral 240 Other: # Voids 3 3 - Labs CBC & Chem 7: 09/27/23 06:10 09/27/23 08:58 Labs: Abnormal Lab Results - Last 24 Hours (Table) 09/26/23 09/26/23 09/26/23 Range/Units 06:33 06:33 17:54 WBC 10.15 H (4.50-10.00) X 10*3/uL RBC 3.21 L (4.10-5.20) X 10*6/uL Hgb 11.9 L (12.0-15.0) g/dL Hct 35.3 L (37.2-46.3) % MCV 110.0 H (80.0-97.0) FL MCH 37.1 H (27.0-32.0) pg Neutrophils # 8.91 H (1.80-7.70) X 10*3/uL Lymphocytes # 0.59 L (0.90-5.00) X 10*3/uL Eosinophils # 0 L (0.04-0.35) X 10*3/uL Macrocytosis Potassium 2.6 A* 3.1 L (3.5-5.5) mmol/L Chloride 112 H 115 H (96-109) mmol/L Carbon Dioxide 17.9 L 16 L (21.6-31.8) mmol/L Creatinine 1.6 H 1.36 H (0.6-1.5) mg/dL Est GFR (CKD-EPI) 38 L (>=60) BUN/Creatinine Ratio 11.69 L (12.00-20.00) Ratio Glucose 107 H (74-99) mg/dL Calcium 8.5 L (8.7-10.3) mg/dL AST 141 H (13-35) U/L Total Protein 5.2 L (6.2-8.2) g/dL Albumin 3.3 L (3.8-4.9) g/dL Amylase 180 H (23-121) U/L Lipase 217 H (14-63) U/L 09/27/23 Range/Units 06:10 WBC (4.50-10.00) X 10*3/uL RBC 3.71 L (4.10-5.20) X 10*6/uL Hgb (12.0-15.0) g/dL Hct (37.2-46.3) % MCV 115.8 H D (80.0-97.0) FL MCH 36.5 H (27.0-32.0) pg Neutrophils # (1.80-7.70) X 10*3/uL Lymphocytes # 0.8 L (0.90-5.00) X 10*3/uL Eosinophils # (0.04-0.35) X 10*3/uL Macrocytosis Marked A Potassium (3.5-5.5) mmol/L Chloride (96-109) mmol/L Carbon Dioxide (21.6-31.8) mmol/L Creatinine (0.6-1.5) mg/dL Est GFR (CKD-EPI) (>=60) BUN/Creatinine Ratio (12.00-20.00) Ratio Glucose (74-99) mg/dL Calcium (8.7-10.3) mg/dL AST (13-35) U/L Total Protein (6.2-8.2) g/dL Albumin (3.8-4.9) g/dL Amylase (23-121) U/L Lipase (14-63) U/L
[2023-09-27] MEDS: HYDROcodone/APAP 7.5-325MG 1 EACH TAB PO PRN (21:47)
--- NOTE | 2023-09-28 06:26 | P.PN ---
Subjective Progress Note Date: 09/27/23 This is a 53-year-old female who was recently admitted with abdominal pain with history of acute pancreatitis with elevated LFTs along with significant electrolyte abnormalities being closely monitored. Patient is scheduled to undergo cholecystectomy with general surgery today. Patient was evaluated by cardiology for surgical clearance. A.m. labs are pending at this time. Patient is afebrile with no reported chest pain or shortness of breath. Patient is currently n.p.o. will be advanced once cleared by surgery. Will await surgical report. Review of systems: Constitutional: No reports of fatigue, fever, or chills Cardiovascular: No reports of chest pain or palpitations Respiratory: No reports of shortness of breath or cough GI: reports of nausea, no reports of vomiting, reports some abdominal pain : No reports of dysuria or retention Neurovascular: No reports of generalized weakness All medications have been reviewed PHYSICAL EXAMINATION: GENERAL: The patient is alert and oriented x4, Well developed, well nourished. Elderly appearing HEENT: Pupils are round and equally reacting to light. EOMI. no scleral icterus. No conjunctival pallor. Normocephalic, atraumatic. No pharyngeal erythema. No thyromegaly. CARDIOVASCULAR: S1 and S2 muffled PULMONARY: diminished breath sounds bilaterally with no wheezing or rhonchi noted. ABDOMEN: soft. tender on exam. non-distended, normoactive bowel sounds. No palpable organomegaly. MUSCULOSKELETAL: No joint swelling or deformity. EXTREMITIES: No cyanosis, clubbing, or pedal edema. NEUROLOGICAL: Gross neurological examination did not reveal any focal deficits. SKIN: No rashes. Assessment: Abdominal pain with acute history of pancreatitis Acute cholecystitis, status post laparoscopic cholecystectomy on 09/27/2023 History of EtOH Severe hypokalemia, improved Elevated LFTs, possible alcoholic hepatitis Acute renal failure, possibly prerenal acute tubular necrosis Leukocytosis Hypertension history History of hyperlipidemia GI prophylaxis DVT prophylaxis Full code Plan: Recommend to continue with current medications and management with general surgery following. Patient is scheduled to undergo which is currently pending. Patient is currently n.p.o. and will await surgical report. Patient has been seen and evaluated by cardiology for clearance Follow-up on repeat labs Currently n.p.o. will be resumed and advance slowly as tolerated per surgical recommendations Encouraged to increase activity as tolerated GI consulted and pending for pancreatitis The impression and plan of care has been dictated by Carlee Cross, nurse practitioner as directed. Dr. Coleman MD I have performed a history and examination and MDM of this patient, discussed the same with the dictator, and agree with the dictator's assessment and plan as written ,documented as a scribe. Based on total visit time, I have performed more than 50% of the visit. Any additional findings or plans will be noted. Objective - Vital Signs Vital signs: Vital Signs Temp 97 F L 09/27/23 10:27 Pulse 59 L 09/27/23 11:15 Resp 20 09/27/23 11:15 BP 88/53 09/27/23 11:15 Pulse Ox 91 L 09/27/23 11:15 FiO2 Intake & Output 09/26/23 09/27/23 09/27/23 18:59 06:59 18:59 Intake Total 240 1140 Output Total 5 Balance 240 1135 Intake: IV 900 Oral 240 240 Output: Estimated Blood Loss 5 Other: # Voids 3 3 3 - Labs CBC & Chem 7: 09/27/23 06:10 09/27/23 08:58 Labs: Abnormal Lab Results - Last 24 Hours (Table) 09/26/23 09/27/23 09/27/23 Range/Units 17:54 06:10 06:10 RBC 3.71 L (3.80-5.40) m/uL MCV 115.8 H D (80.0-100.0) fL MCH 36.5 H (25.0-35.0) pg Lymphocytes # 0.8 L (1.0-4.8) k/uL Macrocytosis Marked A Potassium 3.1 L (3.5-5.1) mmol/L Chloride 115 H 114 H (98-107) mmol/L Carbon Dioxide 16 L 15.7 L (22-30) mmol/L Creatinine 1.36 H (0.52-1.04) mg/dL Est GFR (CKD-EPI) 49 L (>=60) BUN/Creatinine Ratio 9.38 L (12.00-20.00) Ratio Glucose 107 H (74-99) mg/dL Calcium 8.6 L (8.7-10.3) mg/dL AST 199 H (13-35) U/L ALT 59 H (8-44) U/L Total Protein 6.1 L (6.2-8.2) g/dL Albumin 3.7 L (3.8-4.9) g/dL Albumin/Globulin Ratio 1.54 L (1.60-3.17) Ratio Lipase 153 H (14-63) U/L
[2023-09-28 08:03] VITALS: PULSE 72
[2023-09-28] MEDS: ENOXAPARIN 40 MG/0.4 ML SYRINGE SQ SCH (09:12)
[2023-09-28 11:02] LABS: Basophils # (A) 0.04 X 10*3/uL (0.00-0.10); Basophils % (A) 0.5 %; Eosinophils # (A) 0 X 10*3/uL (0.04-0.35); Eosinophils % (A) 0 %; HCT 36.2 % (37.2-46.3); HGB 12.2 g/dL (12.0-15.0); Lymphocytes # (A) 0.98 X 10*3/uL (0.90-5.00); Lymphocytes % (A) 11.6 %; MCH 37.1 pg (27.0-32.0); MCHC 33.7 g/dL (32.0-37.0); Mean Platelet Volume 9.7 FL (9.5-12.2); Monocytes # (A) 0.79 X 10*3/uL (0.20-1.00); Monocytes % (A) 9.3 %; NRBC Per 100 WBC 0 X 10*3/uL (0.00-0.01); Neutrophils # (A) 6.61 X 10*3/uL (1.80-7.70); Neutrophils % (A) 77.9 %; Platelet Count 189 X 10*3/uL (140-440); RBC 3.29 X 10*6/uL (4.10-5.20); RDW 12.8 % (11.5-14.5); WBC 8.48 X 10*3/uL (4.50-10.00)
[2023-09-28 11:17] LABS: ALT 41 U/L (8-44); AST 156 U/L (13-35); Albumin 3.3 g/dL (3.8-4.9); Albumin/Globulin Ratio 1.57 Ratio (1.60-3.17); Alkaline Phosphatase 86 U/L (41-126); Blood Urea Nitrogen 10.8 mg/dL (9.0-27.0); Calcium 8.3 mg/dL (8.7-10.3); Carbon Dioxide 19.9 mmol/L (21.6-31.8); Chloride 110 mmol/L (96-109); Globulin 2.1 g/dL (1.6-3.3); Glucose 112 mg/dL (70-110); Magnesium 1.6 mg/dL (1.5-2.4); Potassium 3.4 mmol/L (3.5-5.5); Sodium 140 mmol/L (135-145); Total Bilirubin 0.3 mg/dL (0.3-1.2); Total Protein 5.4 g/dL (6.2-8.2)
[2023-09-28] MEDS ORDERED: Magnesium Replacement Protocol 1 EACH MISC MISCELLANE PRN (12:43)
[2023-09-28] MEDS ORDERED: Potassium Replacement Protocol 1 EACH MISC MISCELLANE PRN (12:43)
--- NOTE | 2023-09-28 12:43 | P.PN ---
Subjective Progress Note Date: 09/28/23 CHIEF COMPLAINT: Cholecystitis HISTORY OF PRESENT ILLNESS: Patient is postop day #1 status post laparoscopic cholecystectomy. Patient reports her pain is controlled. Denies any nausea or vomiting. Afebrile. Tolerating regular diet. WBC 8.48 potassium 3.4 total bilirubin 0.3 AST is down to 156 ALT 41 alk phos 86 lipase 153. Patient is complaining of gout pain in her right ankle and knee. Medication being adjusted per medicine service PHYSICAL EXAM: VITAL SIGNS: Reviewed. GENERAL: Well-developed in no acute distress. ABDOMEN: Soft. Nondistended. Nontender. Incision sites clean dry and intact NEUROLOGIC: Alert and oriented. Cranial nerves II through XII grossly intact. ASSESSMENT: 1. Cholecystitis 2. Pancreatitis PLAN: -Patient can be discharged from surgical standpoint -Pain medication per patient's pain specialist Physician Rate Quoting Operator note has been reviewed by physician. Signing provider agrees with the documented findings, assessment, and plan of care. Objective - Vital Signs Vital signs: Vital Signs Temp 99.1 F 09/28/23 07:00 Pulse 72 09/28/23 07:00 Resp 15 09/28/23 07:00 BP 103/68 09/28/23 07:00 Pulse Ox 96 09/28/23 07:00 FiO2 Intake & Output 09/27/23 09/28/23 09/28/23 18:59 06:59 18:59 Intake Total 1440 200 Output Total 205 Balance 1235 200 Intake: IV 1200 Oral 240 200 Output: Urine 200 Estimated Blood Loss 5 Other: # Voids 4 1 - Labs CBC & Chem 7: 09/28/23 06:30 09/28/23 06:30 Labs: Abnormal Lab Results - Last 24 Hours (Table) 09/28/23 09/28/23 Range/Units 06:30 06:30 RBC 3.29 L (4.10-5.20) X 10*6/uL Hct 36.2 L (37.2-46.3) % MCV 110.0 H (80.0-97.0) FL MCH 37.1 H (27.0-32.0) pg Immature Gran # 0.06 H (0.00-0.04) X 10*3/uL Eosinophils # 0 L (0.04-0.35) X 10*3/uL Potassium 3.4 L (3.5-5.5) mmol/L Chloride 110 H (96-109) mmol/L Carbon Dioxide 19.9 L (21.6-31.8) mmol/L Est GFR (CKD-EPI) 54 L (>=60) BUN/Creatinine Ratio 9.00 L (12.00-20.00) Ratio Glucose 112 H (70-110) mg/dL Calcium 8.3 L (8.7-10.3) mg/dL AST 156 H (13-35) U/L Total Protein 5.4 L (6.2-8.2) g/dL Albumin 3.3 L (3.8-4.9) g/dL Albumin/Globulin Ratio 1.57 L (1.60-3.17) Ratio
--- NOTE | 2023-09-28 13:06 | P.PN ---
Subjective Progress Note Date: 09/28/23 (Feeling better today) HISTORY OF PRESENTING ILLNESS 53-year-old presented to the hospital because of abdominal pain nausea, poor appetite. She has a past medical history of hypertension, dyslipidemia. In 2018 patient had mild elevation of troponin and was treated for NSTEMI. She got heart catheterization which showed 55% proximal RCA disease which was negative by FFR. This time on admission she was noticed to have lipase elevation 5000 with transaminitis. Patient reported that she binge drinks alcohol. Hb 14, MCV 110, potassium 2.6, creatinine 2.24 on admission, repeat 1.7, Her ECG showed sinus rhythm with flattened T waves which are consistent with hypokalemia. CT abdomen showed pancreatitis and bile duct dilatation September 26, 2023 Patient is doing well from cardiovascular standpoint. She denies having any active chest pain chest pressure shortness of breath. She complains of abdomina l and epigastric pain she is feeling nauseous. She is on clear liquid diets. She is tolerating her cardiac medications. Blood pressure is well-controlled. Sinus rhythm on telemetry. 09/26 Repeat blood work reveals WBC 9.4, hemoglobin 13.6 and platelet count 192. Sodium 140, potassium 3.9, chloride 114, CO2 15, BUN 12 and creatinine 1.3. AST 199, ALT 59, alkaline phosphatase 98. Lipase 153. Blood pressure 102/63, heart rate 64, pulse ox 99% on room air. Patient denies having any chest pain. She is scheduled for cholecystectomy today. Echocardiogram reveals EF of 50 to 55%, trace mitral regurgitation. 09/27 Yesterday, patient underwent laparoscopic cholecystectomy. Blood pressure 103/6 8, heart rate 72, pulse ox 96% on room air. Patient denies having any chest pain. She does have some abdominal pain which she thinks is gas pain. She has not had a bowel movement yet. No shortness of breath and she does complain of lower extremity edema which is trace. Reviewed echocardiogram results with the patient. Also recommended discontinuing fenofibrate. PHYSICAL EXAMINATION Vital signs reviewed. Head: Normocephalic. Eyes: Sclerae nonicteric. Neck: Brisk carotid upstroke, no jugular venous distention. Lungs: Clear to auscultation. Heart: Regular rate and rhythm, S1-S2, no S3, no murmur or rub. Abdomen: Soft nontender, positive bowel sounds. Extremities: No edema, intact distal pulses. Neuro: Alert, oritented, no focal deficits. Detailed neuro exam was not performed. ASSESSMENT Atypical chest pain and epigastric pain due to pancreatitis Cholecystitis status post laparoscopic cholecystectomy Binge alcohol drinking Moderate CAD proximal RCA 55% in 2018 Tobacco use Hypertension Dyslipidemia Hypokalemia due to nausea vomiting DIANA due to dehydration and likely prerenal PLAN Continue current cardiac medications Discontinue fenofibrate Follow-up with Dr. August in 2 weeks. Cardiology will sign off this case and follow on an as-needed basis. Please reconsult for any new concerns. Nurse practitioner note has been reviewed, I agree with documented findings and plan of care. Patient was seen and examined. Objective - Vital Signs Vital signs: Vital Signs Temp 99.1 F 09/28/23 07:00 Pulse 72 09/28/23 07:00 Resp 15 09/28/23 07:00 BP 103/68 09/28/23 07:00 Pulse Ox 96 09/28/23 07:00 FiO2 Intake & Output 09/27/23 09/28/23 09/28/23 18:59 06:59 18:59 Intake Total 1440 Output Total 205 Balance 1235 Intake: IV 1200 Oral 240 Output: Urine 200 Estimated Blood Loss 5 Other: # Voids 4 1 - Labs CBC & Chem 7: 09/28/23 06:30 09/28/23 06:30 Labs: Abnormal Lab Results - Last 24 Hours (Table) 09/27/23 Range/Units 06:10 Chloride 114 H (96-109) mmol/L Carbon Dioxide 15.7 L (21.6-31.8) mmol/L Est GFR (CKD-EPI) 49 L (>=60) BUN/Creatinine Ratio 9.38 L (12.00-20.00) Ratio Calcium 8.6 L (8.7-10.3) mg/dL AST 199 H (13-35) U/L ALT 59 H (8-44) U/L Total Protein 6.1 L (6.2-8.2) g/dL Albumin 3.7 L (3.8-4.9) g/dL Albumin/Globulin Ratio 1.54 L (1.60-3.17) Ratio Lipase 153 H (14-63) U/L
[2023-09-28] MEDS: MAGNESIUM SULFATE-D5W PMX 1 GM in DEXTROSE/WATER 1 100ML.BAG IVPB ONE (13:09)
[2023-09-28] MEDS: POTASSIUM CHLORIDE ER 20 MEQ TAB.ER PO SCH (13:10)
[2023-09-28 13:40] VITALS: BP 121/79; RESP 16; TEMP 98.2
--- NOTE | 2023-09-28 14:23 | P.CONS ---
History of Present Illness - Reason for Consult Consult date: 09/28/23 Pancreatitis Requesting physician: Carlee Cross - Chief Complaint Abdominal pain - History of Present Illness This is a 53-year-old female who presented to the emergency department back on 09/24/2023 for her complaints of abdominal pain and generalized fatigue and weakness. She states she was feeling very fatigued for the week prior to coming and she was having abdominal discomfort but then the day prior to coming in she had severe epigastric pain she states that rash around her right upper quadrant and into her back. She had a gallbladder ultrasound that reported hydropic appearing gallbladder with sludge borderline mildly thickened gallbladder wall and a dilated CBD with no obstructing stone visualized. She also underwent a CT of the abdomen pelvis again showing concerns for pancreatitis, dilated CBD. Total bilirubin has been normal since admission, LFTs have been mildly elevated . With a normal alkaline phosphatase. She was noted to have elevated lipase on admission up to 5586. General surgery was consulted for gallstone pancreatitis. She underwent laparoscopic cholecystectomy yesterday. She states she mostly has just surgical pain and pain in her feet from gout. She denies any nausea or vomiting. She is tolerating her diet. Patient is reporting that she would like to go home. Review of Systems REVIEW OF SYSTEMS: CARDIOPULMONARY: No chest pain or shortness of breath. Gastrointestinal: epigastric and right upper quadrant pain improved.presented with epigastric and right upper quadrant pain. Reporting surgical pain No nausea or vomiting. No hematemesis, coffee-ground emesis. No rectal bleeding, or melena. GENITOURINARY: No dysuria or hematuria. MUSCULOSKELETAL: Reports normal range of motion., Joint pain. States she has gout flareup SKIN: No rashes. No jaundice. ENDOCRINE: No chills, fevers. No excessive weight gain or loss. No polydipsia or polyuria. PSYCHIATRIC: Unremarkable. NEUROLOGY: No change in mental status. Denies dizziness, headache. ENT: Vision unremarkable. CONSTITUTIONAL: No recent weight loss. No fever, chills, night sweats. Past Medical History Past Medical History: Hyperlipidemia, Hypertension, Myocardial Infarction ([place]) Last Myocardial Infarction Date:: unknown History of Any Multi-Drug Resistant Organisms: None Reported Past Surgical History: Heart Catheterization, Hysterectomy Additional Past Surgical History / Comment(s): ; heart cath no stent 08/11/2017 Past Anesthesia/Blood Transfusion Reactions: No Reported Reaction Past Psychological History: No Psychological Hx Reported Smoking Status: Current every day smoker Past Alcohol Use History: Occasional Past Drug Use History: None Reported - Past Family History Father Additional Family Medical History / Comment(s): pt's father due to alco holism Medications and Allergies Home Medications Medication Instructions Recorded Confirmed Type Aspirin 81 mg PO DAILY #90 chew 08/13/17 09/24/23 Rx Metoprolol Tartrate [Lopressor] 25 mg PO BID #180 tab 08/13/17 09/24/23 Rx Buprenorphine HCl/Naloxone HCl 0.5 film SL BID@0900,1400 09/24/23 09/24/23 History [Suboxone 8 mg-2 mg Sl Film] Colchicine 0.6 mg PO DAILY PRN 09/24/23 09/24/23 History Ibuprofen [Motrin] 800 mg PO BID PRN 09/24/23 09/24/23 History Ketoconazole 2% Shampoo [Nizoral] 1 applic TOPICAL Q3D PRN 09/24/23 09/24/23 History Levothyroxine Sodium [Synthroid] 75 mcg PO DAILY 09/24/23 09/24/23 History Losartan Potassium 100 mg PO DAILY 09/24/23 09/24/23 History Nitroglycerin Sl Tabs [Nitrostat] 0.4 mg SL Q5M PRN 09/24/23 09/24/23 History Ondansetron Odt [Zofran ODT] 4 mg PO Q8HR PRN 09/24/23 09/24/23 History Rosuvastatin [Crestor] 20 mg PO DAILY 09/24/23 09/24/23 History allopurinoL [Zyloprim] 300 mg PO DAILY 09/24/23 09/24/23 History amLODIPine [Norvasc] 10 mg PO DAILY 09/24/23 09/24/23 History Docusate [Colace] 100 mg PO BID #30 capsule 09/28/23 Rx Folic Acid 1 mg PO DAILY #30 tab 09/28/23 Rx Multivitamins, Thera [Multivitamin 1 each PO DAILY #30 tab 09/28/23 Rx (formulary)] Thiamine [Vitamin B-1] 100 mg PO DAILY #30 tab 09/28/23 Rx Allergies Allergy/AdvReac Type Severity Reaction Status Date / Time No Known Allergies Allergy Verified 09/24/23 17:28 Physical Exam Vitals: Vital Signs Temp Pulse Resp BP BP Pulse Ox 09/28/23 13:14 98.2 F 72 16 121/79 99 09/28/23 07:00 99.1 F 72 15 103/68 96 09/28/23 01:21 98.4 F 80 16 105/69 100 09/27/23 19:28 98.8 F 80 16 97/64 97 09/27/23 15:00 97.6 F 78 16 99/67 100 09/27/23 14:35 83 112/73 100 09/27/23 14:00 62 17 09/27/23 13:35 73 17 104/68 98 Intake and Output 09/27/23 09/28/23 09/28/23 22:59 06:59 14:59 Intake Total 200 Balance 200 Intake: Oral 200 Other: # Voids 2 1 General appearance: The patient is alert, oriented, appears in no acute distress. HET: Head is normocephalic and atraumatic. Conjunctiva pink. Sclera anicteric. Neck: Supple without lymphadenopathy. Trachea midline. Heart: Regular. Lungs: Equal expansion, normal respiratory effort. Abdomen: Soft, tenderness around surgical incisions, nondistended. Skin: No rashes. No jaundice. Extremities: Normal skin color and turgor. No pedal edema. Neurological: No focal deficits. Alert and oriented x3. Results CBC & Chem 7: 09/28/23 06:30 09/28/23 06:30 Labs: Abnormal Lab Results - Last 24 Hours (Table) 09/28/23 09/28/23 Range/Units 06:30 06:30 RBC 3.29 L (4.10-5.20) X 10*6/uL Hct 36.2 L (37.2-46.3) % MCV 110.0 H (80.0-97.0) FL MCH 37.1 H (27.0-32.0) pg Immature Gran # 0.06 H (0.00-0.04) X 10*3/uL Eosinophils # 0 L (0.04-0.35) X 10*3/uL Potassium 3.4 L (3.5-5.5) mmol/L Chloride 110 H (96-109) mmol/L Carbon Dioxide 19.9 L (21.6-31.8) mmol/L Est GFR (CKD-EPI) 54 L (>=60) BUN/Creatinine Ratio 9.00 L (12.00-20.00) Ratio Glucose 112 H (70-110) mg/dL Calcium 8.3 L (8.7-10.3) mg/dL AST 156 H (13-35) U/L Total Protein 5.4 L (6.2-8.2) g/dL Albumin 3.3 L (3.8-4.9) g/dL Albumin/Globulin Ratio 1.57 L (1.60-3.17) Ratio Comments: Gallbladder ultrasound reports hydropic appearing gallbladder with possible symptoms dependent sludge but no shadowing calculi. Borderline mildly thickened gallbladder wall. No sonographic [place] sign elicited. Dilated CBD, with no obstructing stone visualized by this exam correlate clinically and MRCP could be considered for further evaluation if clinically warranted. Nonvisualization of the pancreas due to bowel gas. CT abdomen pelvis with contrast reports abnormal appearance of the right upper quadrant, likely due to moderate to severe pancreatitis involving the head and connate process and pancreatic duodenal groove. No focal fluid collection, free fluid or free air. Dilated CBD which seems to taper in the region of the pancreatic head could be at least in part due to #1 Assessment and Plan (1) Pancreatitis Narrative/Plan: 53-year-old female presented 4 days ago with complaints of epigastric right upper quadrant pain. She was noted to have elevated amylase and lipase with gallbladder concerning for biliary sludge, however no gallstones noted. Patient did not have any elevation in her bilirubin or alkaline phosphatase only elevation of her ALT and AST. No previous history of gallbladder disease or pancreatitis. She underwent cholecystectomy yesterday and symptoms have been relieved. Today's liver enzymes total bilirubin 0.3 AST 156 ALT 41 alkaline phosphatase 86 last lipase was yesterday down to 153 from 5586 on admission. Possible gallstone pancreatitis however resolved and no elevation of LFTs. Symptoms have completely resolved, and no further inpatient workup indicated. If pain returns can follow-up outpatient consider MRCP in the outpatient setting. Current Visit: Yes Status: Acute Code(s): K85.90 - ACUTE PANCREATITIS WITHOUT NECROSIS OR INFECTION, UNSP SNOMED Code(s): 82590452 (2) Cholecystitis Current Visit: Yes Status: Acute Code(s): K81.9 - CHOLECYSTITIS, UNSPECIFIED SNOMED Code(s): 15962465 Plan: 1. Continue symptomatic and supportive care 2. Diet per recommendations from general surgery 3. Encourage ambulation 4. Labs and symptoms of proved, appears that pancreatitis has improved. No further workup indicated at this time. Thank you for this consultation, patient is cleared from gastroenterology for discharge. Follow up in [address] Omar Jerry I agree with the dictator's note, documented as a scribe by Yasmeen Conn.
--- NOTE | 2023-10-01 06:13 | P.DS ---
Providers Date of admission: 09/24/23 20:54 Expected date of discharge: 09/28/23 Attending physician: Oriana Cee Consults: 09/24/23 20:54 Consult Physician Routine Consulting Provider: Mario Peralta Consult Reason/Comments: pancreatitis Do you want consulting provider notified?: Yes 09/25/23 13:15 Consult Physician Routine Consulting Provider: Jeremiah August Consult Reason/Comments: chest pain on admission Do you want consulting provider notified?: Yes 09/27/23 11:34 Consult Physician Urgent Consulting Provider: Sheila Jerry Consult Reason/Comments: pancreatitis Do you want consulting provider notified?: Yes Primary care physician: Physician Nonstaff Hospital Course: Final diagnosis Abdominal pain with acute history of pancreatitis Acute cholecystitis, status post laparoscopic cholecystectomy on 09/27/2023 History of EtOH Severe hypokalemia, improved Elevated LFTs, possible alcoholic hepatitis Acute renal failure, prerenal acute tubular necrosis Leukocytosis Hypertension history History of hyperlipidemia GI prophylaxis DVT prophylaxis Full code Discharge disposition Patient is being discharged in a stable condition with guarded prognosis to [facility]. Patient will follow-up with her PCP in the outpatient setting upon discharge. Patient is to continue with outpatient follow-up with GI as well as general surgery and cardiology as scheduled. Total time taken is greater than 35 minutes. Hospital course This is a 53-year-old female who was recently admitted with abdominal pain and acute pancreatitis. Patient also was found to have acute cholecystitis being evaluated by general surgery underwent laparoscopic cholecystectomy. Patient reports to feeling well and tolerating diet and would like to go home. Patient has been instructed to follow-up with primary care provider as well as general surgery and cardiology outpatient. Please refer to other consultation notes for further HPI. Currently no reports of chest pain, shortness of breath, or palpitations. Patient is afebrile. No reports of nausea or vomiting and patient is tolerating diet. Patient will be discharged home today. Patient also instructed to follow-up with pain management outpatient. Physical exam: Gen: This is a 53-year-old female who is awake, alert oriented x 3, well- developed, well-nourished HEENT: Head is atraumatic, normocephalic. Pupils equal, round. Sclerae is anicteric. NECK: Supple. No JVD. No lymphadenopathy. No thyromegaly. LUNGS: Clear to auscultation. No wheezes or rhonchi. No intercostal retractions. HEART: Regular rate and rhythm. No murmur. ABDOMEN: Soft. Mildly tender on palpation. Surgical site are dry and intact. Bowel sounds are present. No masses. EXTREMITIES: No pedal edema. No calf tenderness. NEUROLOGICAL: Patient is awake, alert and oriented x3. Cranial nerves 2 through 12 are grossly intact. Please refer to medication reconciliation sheet for a list of medications. The impression and plan of care has been dictated by Carlee Cross, Nurse Practitioner as directed. Dr. Kassandra MD I have performed a history and examination and MDM of this patient, discussed the same with the dictator, and agree with the dictator's assessment and plan as written ,documented as a scribe. Based on total visit time, I have performed more than 50% of the visit. Patient Condition at Discharge: Good Plan - Discharge Summary New Discharge Prescriptions: New Docusate [Colace] 100 mg PO BID #30 capsule Thiamine [Vitamin B-1] 100 mg PO DAILY #30 tab Folic Acid 1 mg PO DAILY #30 tab Multivitamins, Thera [Multivitamin (formulary)] 1 each PO DAILY #30 tab Continue Aspirin 81 mg PO DAILY #90 chew Metoprolol Tartrate [Lopressor] 25 mg PO BID #180 tab Nitroglycerin Sl Tabs [Nitrostat] 0.4 mg SL Q5M PRN PRN Reason: Chest Pain Losartan Potassium 100 mg PO DAILY Ketoconazole 2% Shampoo [Nizoral] 1 applic TOPICAL Q3D PRN PRN Reason: scalp irritation Colchicine 0.6 mg PO DAILY PRN PRN Reason: gout flare amLODIPine [Norvasc] 10 mg PO DAILY allopurinoL [Zyloprim] 300 mg PO DAILY Ondansetron Odt [Zofran ODT] 4 mg PO Q8HR PRN PRN Reason: Nausea Levothyroxine Sodium [Synthroid] 75 mcg PO DAILY Ibuprofen [Motrin] 800 mg PO BID PRN PRN Reason: Pain Buprenorphine HCl/Naloxone HCl [Suboxone 8 mg-2 mg Sl Film] 0.5 film SL BID@0900,1400 Rosuvastatin [Crestor] 20 mg PO DAILY Discontinued Fenofibrate Nanocrystallized [Fenofibrate] 145 mg PO DAILY Discharge Medication List Aspirin 81 mg PO DAILY #90 chew 08/13/17 [Rx] Metoprolol Tartrate [Lopressor] 25 mg PO BID #180 tab 08/13/17 [Rx] Buprenorphine HCl/Naloxone HCl [Suboxone 8 mg-2 mg Sl Film] 0.5 film SL BID@0900,1400 09/24/23 [History] Colchicine 0.6 mg PO DAILY PRN 09/24/23 [History] Ibuprofen [Motrin] 800 mg PO BID PRN 09/24/23 [History] Ketoconazole 2% Shampoo [Nizoral] 1 applic TOPICAL Q3D PRN 09/24/23 [History] Levothyroxine Sodium [Synthroid] 75 mcg PO DAILY 09/24/23 [History] Losartan Potassium 100 mg PO DAILY 09/24/23 [History] Nitroglycerin Sl Tabs [Nitrostat] 0.4 mg SL Q5M PRN 09/24/23 [History] Ondansetron Odt [Zofran ODT] 4 mg PO Q8HR PRN 09/24/23 [History] Rosuvastatin [Crestor] 20 mg PO DAILY 09/24/23 [History] allopurinoL [Zyloprim] 300 mg PO DAILY 09/24/23 [History] amLODIPine [Norvasc] 10 mg PO DAILY 09/24/23 [History] Docusate [Colace] 100 mg PO BID #30 capsule 09/28/23 [Rx] Folic Acid 1 mg PO DAILY #30 tab 09/28/23 [Rx] Multivitamins, Thera [Multivitamin (formulary)] 1 each PO DAILY #30 tab 09/28/23 [Rx] Thiamine [Vitamin B-1] 100 mg PO DAILY #30 tab 09/28/23 [Rx] Follow up Appointment(s)/Referral(s): Jeremiah August MD [Medical Doctor] - 2 Weeks (office will call patient with appointment ) Chelly,Physician [Primary Care Provider] - 1-2 days Mario Peralta MD [STAFF PHYSICIAN] - 10/07/23 1:45 pm Activity/Diet/Wound Care/Special Instructions: No driving while taking [place] No lifting over 10 pounds Shower daily. No soaking or tub baths for 2 weeks Very light activity until you are reevaluated at your follow up appointment with your surgeon Discharge Disposition: HOME SELF-CARE
== END 2023-09-28 14:53 | disposition home or self-care (01) | DRG 417 ==
LOC: EC 14:54 → 6NMEDSUR 20:54
PROVIDERS: ADMIT Hospitalist; ATTEND Hospitalist
PROC: 0FT44ZZ Resection of Gallbladder, Percutaneous Endoscopic Approach (ICD-10-PCS; principal; 2023-09-27 17:40)
DX: K81.9 Cholecystitis, unspecified (principal); K85.10 Biliary acute pancreatitis without necrosis or infection; K82.1 Hydrops of gallbladder; N17.9 Acute kidney failure, unspecified; M10.9 Gout, unspecified; Z28.310 Unvaccinated for COVID-19; I45.10 Unspecified right bundle-branch block; I25.2 Old myocardial infarction; I25.10 Atherosclerotic heart disease of native coronary artery without angina pectoris; I10 Essential (primary) hypertension; F17.200 Nicotine dependence, unspecified, uncomplicated; E87.6 Hypokalemia; E86.0 Dehydration; E78.5 Hyperlipidemia, unspecified; Z79.82 Long term (current) use of aspirin; Z79.890 Hormone replacement therapy; Z79.899 Other long term (current) drug therapy
CPT/HCPCS: 36415; 71046; 74176; 76705; 80048; 80053; 80320; 81001; 82150; 82977; 83690; 83735; 83880; 84100; 84132; 84484; 85025; 85610; 85730; 88304; 93005; 93306; 96361; 96374; 96375; 96376; 99285

== ENCOUNTER 2023-10-15 12:20 | Emergency (ER) | payer BC ==
--- NOTE | 2023-10-15 13:08 | ED ---
Dizziness HPI - General Chief Complaint: Dizziness Stated Complaint: Post-op abd pain/dizziness Time Seen by Provider: 10/15/23 13:07 Source: patient, RN notes reviewed Mode of arrival: wheelchair Limitations: no limitations - History of Present Illness Initial Comments: This is a 53-year-old female who presents to the emergency department for dizziness. Patient was admitted about 2 weeks ago for pancreatitis and hypokalemia. During that admission she also had a cholecystectomy. She did fine for the first week, however at the second week she started to experience intermittent dizzy spells. The last 4 days in particular have been much worse. States that if she is on her feet for more than an hour, she feels like she is going to pass out. She had been having some intermittent epigastric pain that has since resolved. Denies any nausea, vomiting, chest pain, or shortness of breath associated with this. States that in general she just feels very weak. Additionally, since the surgery she has stopped drinking alcohol and tried to be healthier in general. She is still taking all of her blood pressure medication but has not been checking her blood pressure at home. MD Complaint: dizziness - Related Data Home Medications Medication Instructions Recorded Confirmed RX: Buprenorphine HCl/Naloxone HCl 0.5 film SL BID@0900,1400 09/24/23 09/24/23 [Suboxone 8 mg-2 mg Sl Film] RX: Colchicine 0.6 mg PO DAILY PRN 09/24/23 09/24/23 RX: Ibuprofen [Motrin] 800 mg PO BID PRN 09/24/23 09/24/23 RX: Ketoconazole 2% Shampoo 1 applic TOPICAL Q3D PRN 09/24/23 09/24/23 [Nizoral] RX: Levothyroxine Sodium 75 mcg PO DAILY 09/24/23 09/24/23 [Synthroid] RX: Losartan Potassium 100 mg PO DAILY 09/24/23 09/24/23 RX: Nitroglycerin Sl Tabs 0.4 mg SL Q5M PRN 09/24/23 09/24/23 [Nitrostat] RX: Ondansetron Odt [Zofran ODT] 4 mg PO Q8HR PRN 09/24/23 09/24/23 RX: Rosuvastatin [Crestor] 20 mg PO DAILY 09/24/23 09/24/23 RX: allopurinoL [Zyloprim] 300 mg PO DAILY 09/24/23 09/24/23 RX: amLODIPine [Norvasc] 10 mg PO DAILY 09/24/23 09/24/23 Previous Rx's Medication Instructions Recorded RX: Aspirin 81 mg PO DAILY #90 chew 08/13/17 RX: Metoprolol Tartrate [Lopressor] 25 mg PO BID #180 tab 08/13/17 Docusate [Colace] 100 mg PO BID #30 capsule 09/28/23 RX: Folic Acid 1 mg PO DAILY #30 tab 09/28/23 RX: Multivitamins, Thera 1 each PO DAILY #30 tab 09/28/23 [Multivitamin (formulary)] RX: Thiamine [Vitamin B-1] 100 mg PO DAILY #30 tab 09/28/23 Nitrofurantoin Monohyd/M-Cryst 100 mg PO Q12HR 5 Days #10 cap 10/15/23 [Macrobid] Allergies Allergy/AdvReac Type Severity Reaction Status Date / Time No Known Allergies Allergy Verified 09/24/23 17:28 Review of Systems ROS Statement: Those systems with pertinent positive or pertinent negative responses have been documented in the HPI. ROS Other: All systems not noted in ROS Statement are negative. Past Medical History Past Medical History: Hyperlipidemia, Hypertension, Myocardial Infarction (IA) Last Myocardial Infarction Date:: unknown History of Any Multi-Drug Resistant Organisms: None Reported Past Surgical History: Cholecystectomy, Heart Catheterization, Hysterectomy Additional Past Surgical History / Comment(s): ; heart cath no stent 08/11/2017 Past Anesthesia/Blood Transfusion Reactions: No Reported Reaction Past Psychological History: No Psychological Hx Reported Past Alcohol Use History: Occasional Past Drug Use History: None Reported - Past Family History Father Additional Family Medical History / Comment(s): pt's father due to alcoholism General Exam Limitations: no limitations General appearance: alert, in no apparent distress Head exam: Present: atraumatic, normocephalic, normal inspection Eye exam: Present: normal appearance, PERRL, EOMI. Absent: scleral icterus, conjunctival injection, periorbital swelling Respiratory exam: Present: normal lung sounds bilaterally. Absent: respiratory distress, wheezes, rales, rhonchi, stridor Cardiovascular Exam: Present: regular rate, normal rhythm, normal heart sounds. Absent: systolic murmur, diastolic murmur, rubs, gallop, clicks GI/Abdominal exam: Present: soft, normal bowel sounds. Absent: distended, tenderness, guarding, rebound, rigid Neurological exam: Present: alert, oriented X3, CN II-XII intact Psychiatric exam: Present: normal affect, normal mood Skin exam: Present: warm, dry, intact, normal color. Absent: rash Course Vital Signs 10/15/23 10/15/23 10/15/23 12:29 14:06 15:00 Temperature 97.7 F Pulse Rate 76 78 72 Respiratory 16 18 18 Rate Blood Pressure 91/65 84/57 94/58 O2 Sat by Pulse 99 98 96 Oximetry 10/15/23 10/15/23 16:42 17:50 Temperature 98.1 F Pulse Rate 70 62 Respiratory 18 18 Rate Blood Pressure 99/64 103/68 O2 Sat by Pulse 96 98 Oximetry Medical Decision Making - Medical Decision Making This is a 53 year old female who presents to the emergency department for weakness and dizziness. Was pt. sent in by a medical professional or institution? @ -No Did you speak to anyone other than the patient for history? @ -No Did you review nursing and triage notes? @ -Yes, and I agree, it is accurate with regards to the patient's symptoms. Were old charts reviewed? @ -No Differential Diagnosis? @ -Differential Weakness: Hypoglycemia, shock, sepsis, hyponatremia, anemia, infection, IA, ETOH, adverse medicine reaction, overdose, stroke, this is not meant to be an all-inclusive list. EKG interpreted by me (3pts min.)? @ -EKG interpreted by me demonstrating the following: Sinus rhythm. Ventricular rate 66 bpm, HI interval 209 ms, QRS duration 93 ms, QTc 374 ms. X-rays interpreted by me (1pt min.)? @ -Chest x-ray obtained, my interpretation identifies no localized consolidations or infiltrates. CT interpreted by me (1pt min.)? @ -CTA of the chest obtained. My interpretation identifies no evidence of a pulmonary embolus. U/S interpreted by me (1pt. min.)? @ -Not obtained What testing was considered but not performed? (CT, X-rays, U/S, labs)? Why? @ -None What meds were considered but not given? Why? @ -None Did you discuss the management of the patient with other professionals? @ -No Did you reconcile home meds? @ -No Was smoking cessation discussed for >3mins.? @ -No Was critical care preformed (if so, how long)? @ -No Were there social determinants of health that impacted care today? How? (Homel essness, low income, unemployed, alcoholism, drug addiction, transportation, low edu. Level, literacy, decrease access to med. care, nursing home, rehab)? @ -No Was there de-escalation of care discussed even if they declined? (Discuss DNR or withdrawal of care, Hospice)? @ -No What co-morbidities impacted this encounter? (DM, HTN, Smoking, COPD, CAD, Can cer, CVA, Hep., AIDS, mental health diagnosis, sleep apnea, morbid obesity)? @ -HLD, HTN Was patient admitted / discharged? @ -Discharged. Lab work demonstrates an elevated D-dimer of 0.88, signs of mild dehydration, and a mildly elevated lipase of 380. Urinalysis is contaminated but does have moderate bacteria present. Chest x-ray obtained revealing no acute process. CTA of the chest demonstrates no evidence of a pulmonary embolus. The bile duct dilation at 1.7 cm was previously seen on 09/24/2023, however the inflammation seen at that time appears to have resolved. Patient also not currently experiencing any abdominal pain. She was hypotensive on arrival with blood pressures ranging from the 80s to 90s systolically. She was treated with a 2 L bolus of IV fluids and blood pressure improved to 103/68. We did discuss admission for dizziness and hypotension, however as her blood pressure started to improve and with the IV fluids, patient did start to feel better and requested discharge home. Advised she hold her blood pressure medication and check her blood pressure several times each day at home. She does have a blood pressure cuff that she can use. She also has a follow-up appointment with her primary care provider scheduled in 4 days from now. Urine was sent for culture, however given the moderate bacteria we will start her on Macrobid. Patient otherwise discharged home in stable condition. Undiagnosed new problem with uncertain prognosis? @ -None Drug Therapy requiring intensive monitoring for toxicity (Heparin, Nitro, Insulin, Cardizem)? @ -None Were any procedures done? @ -None Diagnosis/symptom? @ -Dizziness, hypotension, UTI Acute, or Chronic, or Acute on Chronic? @ -Acute Uncomplicated (without systemic symptoms) or Complicated (systemic symptoms)? @ -Uncomplicated Side effects of treatment? @ -None Exacerbation, Progression, or Severe Exacerbation] @ -Not applicable Poses a threat to life or bodily function? @ -This will depend on how her blood pressure progresses. Return precautions reviewed in depth, the patient is instructed to return to the emergency department with any new, worsening, or concerning symptoms. Patient verbalized understanding. This case was discussed in detail with the attending ED physician, Dr. Tinoco. Presentation, findings, and treatment plan discussed in detail as well. - Lab Data Result diagrams: 10/15/23 13:20 10/15/23 13:20 Lab Results 10/15/23 10/15/23 10/15/23 Range/Units 13:20 13:20 13:20 WBC 6.9 (3.8-10.6) k/uL RBC 4.15 (3.80-5.40) m/uL Hgb 14.9 (11.4-16.0) gm/dL Hct 46.3 H (34.0-46.0) % MCV 111.5 H (80.0-100.0) fL MCH 36.0 H (25.0-35.0) pg MCHC 32.3 (31.0-37.0) g/dL RDW 12.8 (11.5-15.5) % Plt Count 268 (150-450) k/uL MPV 9.0 Neutrophils % 61 % Lymphocytes % 21 % Monocytes % 6 % Eosinophils % 9 % Basophils % 1 % Neutrophils # 4.2 (1.3-7.7) k/uL Lymphocytes # 1.4 (1.0-4.8) k/uL Monocytes # 0.4 (0-1.0) k/uL Eosinophils # 0.6 (0-0.7) k/uL Basophils # 0.1 (0-0.2) k/uL Manual Slide Review Performed Macrocytosis Marked A PT 10.5 (10.0-12.5) sec INR 1.0 (<1.2) D-Dimer (<0.60) mg/L FEU Sodium 138 (137-145) mmol/L Potassium 4.5 (3.5-5.1) mmol/L Chloride 111 H (98-107) mmol/L Carbon Dioxide 19 L (22-30) mmol/L Anion Gap 8 mmol/L BUN 21 H (7-17) mg/dL Creatinine 1.01 (0.52-1.04) mg/dL Est GFR (CKD-EPI)AfAm 74 (>60 ml/min/1.73 sqM) Est GFR (CKD-EPI)NonAf 64 (>60 ml/min/1.73 sqM) Glucose 100 H (74-99) mg/dL Plasma Lactic Acid Dmitry (0.7-2.0) mmol/L Calcium 11.4 H (8.4-10.2) mg/dL Magnesium 1.7 (1.6-2.3) mg/dL Total Bilirubin 0.7 (0.2-1.3) mg/dL AST 39 H (14-36) U/L ALT 23 (4-34) U/L Alkaline Phosphatase 63 (38-126) U/L Troponin I (0.000-0.034) ng/mL Total Protein 7.2 (6.3-8.2) g/dL Albumin 4.2 (3.5-5.0) g/dL Amylase (30-110) U/L Lipase (23-300) U/L Urine Color Urine Appearance (Clear) Urine pH (5.0-8.0) Ur Specific [place] (1.001-1.035) Urine Protein (Negative) Urine Glucose (UA) (Negative) Urine Ketones (Negative) Urine Blood (Negative) Urine Nitrite (Negative) Urine Bilirubin (Negative) Urine Urobilinogen (<2.0) mg/dL Ur Leukocyte Esterase (Negative) Urine RBC (0-5) /hpf Urine WBC (0-5) /hpf Ur Squamous Epith Cells (0-4) /hpf Urine Bacteria (None) /hpf Hyaline Casts (0-2) /lpf Urine Mucus (None) /hpf Urine Opiates Screen (NotDetected) Ur Oxycodone Screen (NotDetected) Urine Methadone Screen (NotDetected) Ur Barbiturates Screen (NotDetected) U Tricyclic Antidepress (NotDetected) Ur Phencyclidine Scrn (NotDetected) Ur Amphetamines Screen (NotDetected) U Methamphetamines Scrn (NotDetected) U Benzodiazepines Scrn (NotDetected) Urine Cocaine Screen (NotDetected) U Marijuana (THC) Screen (NotDetected) 10/15/23 10/15/23 10/15/23 Range/Units 13:20 13:20 13:49 WBC (3.8-10.6) k/uL RBC (3.80-5.40) m/uL Hgb (11.4-16.0) gm/dL Hct (34.0-46.0) % MCV (80.0-100.0) fL MCH (25.0-35.0) pg MCHC (31.0-37.0) g/dL RDW (11.5-15.5) % Plt Count (150-450) k/uL MPV Neutrophils % % Lymphocytes % % Monocytes % % Eosinophils % % Basophils % % Neutrophils # (1.3-7.7) k/uL Lymphocytes # (1.0-4.8) k/uL Monocytes # (0-1.0) k/uL Eosinophils # (0-0.7) k/uL Basophils # (0-0.2) k/uL Manual Slide Review Macrocytosis PT (10.0-12.5) sec INR (<1.2) D-Dimer (<0.60) mg/L FEU Sodium (137-145) mmol/L Potassium (3.5-5.1) mmol/L Chloride (98-107) mmol/L Carbon Dioxide (22-30) mmol/L Anion Gap mmol/L BUN (7-17) mg/dL Creatinine (0.52-1.04) mg/dL Est GFR (CKD-EPI)AfAm (>60 ml/min/1.73 sqM) Est GFR (CKD-EPI)NonAf (>60 ml/min/1.73 sqM) Glucose (74-99) mg/dL Plasma Lactic Acid Dmitry 0.7 (0.7-2.0) mmol/L Calcium (8.4-10.2) mg/dL Magnesium (1.6-2.3) mg/dL Total Bilirubin (0.2-1.3) mg/dL AST (14-36) U/L ALT (4-34) U/L Alkaline Phosphatase (38-126) U/L Troponin I <0.012 (0.000-0.034) ng/mL Total Protein (6.3-8.2) g/dL Albumin (3.5-5.0) g/dL Amylase (30-110) U/L Lipase (23-300) U/L Urine Color Yellow Urine Appearance Turbid H (Clear) Urine pH 5.5 (5.0-8.0) Ur Specific [place] 1.023 (1.001-1.035) Urine Protein Trace H (Negative) Urine Glucose (UA) Negative (Negative) Urine Ketones Negative (Negative) Urine Blood Negative (Negative) Urine Nitrite Negative (Negative) Urine Bilirubin 1+ H (Negative) Urine Urobilinogen 3.0 (<2.0) mg/dL Ur Leukocyte Esterase Trace H (Negative) Urine RBC 1 (0-5) /hpf Urine WBC 1 (0-5) /hpf Ur Squamous Epith Cells 40 H (0-4) /hpf Urine Bacteria Moderate H (None) /hpf Hyaline Casts 3 H (0-2) /lpf Urine Mucus Rare H (None) /hpf Urine Opiates Screen Not Detected (NotDetected) Ur Oxycodone Screen Not Detected (NotDetected) Urine Methadone Screen Not Detected (NotDetected) Ur Barbiturates Screen Not Detected (NotDetected) U Tricyclic Antidepress Not Detected (NotDetected) Ur Phencyclidine Scrn Not Detected (NotDetected) Ur Amphetamines Screen Not Detected (NotDetected) U Methamphetamines Scrn Not Detected (NotDetected) U Benzodiazepines Scrn Not Detected (NotDetected) Urine Cocaine Screen Not Detected (NotDetected) U Marijuana (THC) Screen Not Detected (NotDetected) 10/15/23 10/15/23 Range/Units 14:18 14:18 WBC (3.8-10.6) k/uL RBC (3.80-5.40) m/uL Hgb (11.4-16.0) gm/dL Hct (34.0-46.0) % MCV (80.0-100.0) fL MCH (25.0-35.0) pg MCHC (31.0-37.0) g/dL RDW (11.5-15.5) % Plt Count (150-450) k/uL MPV Neutrophils % % Lymphocytes % % Monocytes % % Eosinophils % % Basophils % % Neutrophils # (1.3-7.7) k/uL Lymphocytes # (1.0-4.8) k/uL Monocytes # (0-1.0) k/uL Eosinophils # (0-0.7) k/uL Basophils # (0-0.2) k/uL Manual Slide Review Macrocytosis PT (10.0-12.5) sec INR (<1.2) D-Dimer 0.88 H (<0.60) mg/L FEU Sodium (137-145) mmol/L Potassium (3.5-5.1) mmol/L Chloride (98-107) mmol/L Carbon Dioxide (22-30) mmol/L Anion Gap mmol/L BUN (7-17) mg/dL Creatinine (0.52-1.04) mg/dL Est GFR (CKD-EPI)AfAm (>60 ml/min/1.73 sqM) Est GFR (CKD-EPI)NonAf (>60 ml/min/1.73 sqM) Glucose (74-99) mg/dL Plasma Lactic Acid Dmitry (0.7-2.0) mmol/L Calcium (8.4-10.2) mg/dL Magnesium (1.6-2.3) mg/dL Total Bilirubin (0.2-1.3) mg/dL AST (14-36) U/L ALT (4-34) U/L Alkaline Phosphatase (38-126) U/L Troponin I (0.000-0.034) ng/mL Total Protein (6.3-8.2) g/dL Albumin (3.5-5.0) g/dL Amylase 57 (30-110) U/L Lipase 380 H (23-300) U/L Urine Color Urine Appearance (Clear) Urine pH (5.0-8.0) Ur Specific [place] (1.001-1.035) Urine Protein (Negative) Urine Glucose (UA) (Negative) Urine Ketones (Negative) Urine Blood (Negative) Urine Nitrite (Negative) Urine Bilirubin (Negative) Urine Urobilinogen (<2.0) mg/dL Ur Leukocyte Esterase (Negative) Urine RBC (0-5) /hpf Urine WBC (0-5) /hpf Ur Squamous Epith Cells (0-4) /hpf Urine Bacteria (None) /hpf Hyaline Casts (0-2) /lpf Urine Mucus (None) /hpf Urine Opiates Screen (NotDetected) Ur Oxycodone Screen (NotDetected) Urine Methadone Screen (NotDetected) Ur Barbiturates Screen (NotDetected) U Tricyclic Antidepress (NotDetected) Ur Phencyclidine Scrn (NotDetected) Ur Amphetamines Screen (NotDetected) U Methamphetamines Scrn (NotDetected) U Benzodiazepines Scrn (NotDetected) Urine Cocaine Screen (NotDetected) U Marijuana (THC) Screen (NotDetected) - Radiology Data Radiology results: report reviewed, image reviewed Disposition Clinical Impression: Dizziness, Hypotension, UTI (urinary tract infection) Disposition: HOME SELF-CARE Instructions (If sedation given, give patient instructions): Urinary Tract Infection in Women (ED), Hypotension (ED), Dizziness (ED) Additional Instructions: Return to the emergency department with any new, worsening, or concerning symptoms. Stop taking your blood pressure medication and check your blood pressure at home several times daily and keep a log of these values. Make sure you drink plenty of fluids. Take the antibiotic as prescribed for 5 days. Follow up with your primary care provider as scheduled. Prescriptions: Nitrofurantoin Monohyd/M-Cryst [Macrobid] 100 mg PO Q12HR 5 Days #10 cap Is patient prescribed a controlled substance at d/c from ED?: No Referrals: Nonstaff,Physician [REFERRING] - 1-2 days
[2023-10-15 13:38] LABS: Prothrombin Time 10.5 sec (10.0-12.5)
[2023-10-15 13:45] LABS: Basophils # (A) 0.1 k/uL (0-0.2); Basophils % (A) 1 %; Eosinophils # (A) 0.6 k/uL (0-0.7); Eosinophils % (A) 9 %; HCT 46.3 % (34.0-46.0); HGB 14.9 gm/dL (11.4-16.0); Lymphocytes # (A) 1.4 k/uL (1.0-4.8); Lymphocytes % (A) 21 %; MCHC 32.3 g/dL (31.0-37.0); MCV 111.5 fL (80.0-100.0); Macrocytosis Marked; Monocytes # (A) 0.4 k/uL (0-1.0); Monocytes % (A) 6 %; Neutrophils # (A) 4.2 k/uL (1.3-7.7); Neutrophils % (A) 61 %; Platelet Count 268 k/uL (150-450); RBC 4.15 m/uL (3.80-5.40); RDW 12.8 % (11.5-15.5); WBC 6.9 k/uL (3.8-10.6)
[2023-10-15 13:55] LABS: ALT 23 U/L (4-34); AST 39 U/L (14-36); African American GFR (CKD) 74 (>60 ml/min/1.73 sqM); Albumin 4.2 g/dL (3.5-5.0); Alkaline Phosphatase 63 U/L (38-126); Anion Gap 8 mmol/L; Blood Urea Nitrogen 21 mg/dL (7-17); Calcium 11.4 mg/dL (8.4-10.2); Carbon Dioxide 19 mmol/L (22-30); Chloride 111 mmol/L (98-107); Glucose 100 mg/dL (74-99); Magnesium 1.7 mg/dL (1.6-2.3); Non-African American GFR(CKD) 64 (>60 ml/min/1.73 sqM); Potassium 4.5 mmol/L (3.5-5.1); Sodium 138 mmol/L (137-145); Total Bilirubin 0.7 mg/dL (0.2-1.3); Total Protein 7.2 g/dL (6.3-8.2)
[2023-10-15 14:20] VITALS: RESP 18
[2023-10-15] MEDS: SODIUM CHLORIDE 0.9% 2,000 ML IV STA (14:20)
[2023-10-15 14:30] LABS: Amylase 57 U/L (30-110); Lipase 380 U/L (23-300)
[2023-10-15 14:44] LABS: Appearance,Urine Turbid (Clear); Bacteria,Urine Moderate /hpf; Bilirubin,Urine 1+ (Negative); Blood,Urine Negative (Negative); Color,Urine Yellow; Glucose,Urine (UA) Negative (Negative); Hyaline Casts,Urine 3 /lpf (0-2); Ketones,Urine Negative (Negative); Leukocyte Esterase,Urine Trace (Negative); Mucus,Urine Rare /hpf; Nitrite,Urine Negative (Negative); PH, Urine 5.5 (5.0-8.0); Protein,Urine Trace (Negative); RBC,Urine 1 /hpf (0-5); Specific Gravity,Urine 1.023 (1.001-1.035); Squamous Epithelial Cell,Urine 40 /hpf (0-4); WBC,Urine 1 /hpf (0-5)
--- NOTE | 2023-10-15 14:51 | XR ---
EXAMINATION TYPE: XR chest 2V DATE OF EXAM: 10/15/2023 2:12 PM CLINICAL INDICATION:Female, 53 years old with history of Dizziness, weakness; COMPARISON: 09/24/2023. TECHNIQUE: XR chest 2V Frontal and lateral views of the chest. FINDINGS: Lungs/Pleura: There is no evidence of pleural effusion, focal consolidation, or pneumothorax. Pulmonary vascularity: Unremarkable. Heart/mediastinum: Cardiomediastinal silhouette is unremarkable. Musculoskeletal: No acute osseous pathology. IMPRESSION: No acute cardiopulmonary disease/process.
[2023-10-15 14:52] LABS: Amphetamine Screen,Urine Not Detected (NotDetected); Barbiturate Screen,Urine Not Detected (NotDetected); Benzodiazepines Screen,Urine Not Detected (NotDetected); Cocaine Screen,Urine Not Detected (NotDetected); Methadone Screen, Urine Not Detected (NotDetected); Opiate Screen,Urine Not Detected (NotDetected); Oxycodone Screen, Urine Not Detected (NotDetected); Phencyclidine Screen,Urine Not Detected (NotDetected); Tricyclic Antidepressant,Urine Not Detected (NotDetected); Urn Cannabinoid Scrn Not Detected (NotDetected)
--- NOTE | 2023-10-15 15:40 | CT ---
EXAMINATION TYPE: CT chest angio for PE DATE OF EXAM: 10/15/2023 COMPARISON: Radiograph same day HISTORY: 53-year-old female shortness of breath, Dizziness, elevated d-dimer, recent post abdomen pos t op, hx HTN, [place]. TECHNIQUE: Contiguous axial scanning of the chest performed with IV Contrast, patient injected with 1 00 mL of Isovue 370. Coronal and sagittal MIP reconstructions performed. CT DLP: 1049.4 mGycm Automated exposure control for dose reduction was used. FINDINGS: The heart is normal size without pericardial effusion. Three-vessel coronary artery calcifications ar e present. No flattening of the interventricular septum. Minimal contrast extending into the hepatic veins. Aorta normal caliber with conventional arch vessel branching anatomy. Mild atelectatic narrowing prox imal left subclavian artery. No thoracic lymphadenopathy by CT size criteria. No evidence for pulmonary embolus. There is mild diffuse bronchial wall thickening without consolidation or pleural effusion. Visualized upper abdomen shows a dilated bile duct measuring 1.7 cm. Clinically correlate. Much of th e previous inflammation from 09/24/2023 appears to have resolved though the upper abdomen is only part ially imaged. Bones: No osseous destructive process. IMPRESSION: 1. NO EVIDENCE FOR PULMONARY EMBOLUS. 2. THREE-VESSEL CORONARY ARTERY CALCIFICATIONS. 3. MILD BRONCHIAL WALL THICKENING CAN BE SEEN WITH BRONCHITIS OR ASTHMA. 4. BILE DUCT DILATED AT 1.7 CM SEEN ON 09/24/2023. THE INFLAMMATION SEEN AT THAT TIME APPEARS TO ALBERTS VE RESOLVED THOUGH THE UPPER ABDOMEN IS ONLY PARTIALLY INCLUDED ON THE PRESENT EXAM.
[2023-10-15 18:21] VITALS: BP 103/68; PULSE 62; TEMP 98.1
== END 2023-10-15 17:58 | disposition home or self-care (01) ==
LOC: EC 12:20
DX: N39.0 Urinary tract infection, site not specified (principal); I95.9 Hypotension, unspecified; E78.5 Hyperlipidemia, unspecified; I10 Essential (primary) hypertension; Z90.49 Acquired absence of other specified parts of digestive tract
CPT/HCPCS: 36415; 93005; 85379; 80053; 82150; 83605; 83690; 83735; 84484; 85025; 85610; 81001; 80306; 87086; 71046; 71275; 99284; 96360; 96361; Q9967